=== PATIENT | female | born 1950 | race Caucasian/White ===

== ENCOUNTER → 2016-12-09 | Outpatient (REF) | payer MEDICARE, OTHER ==
[2016-12-09 17:00] LABS: ALBUMIN 3.6 GM/DL (3.2-5.2); ALBUMIN/GLOBULIN RATIO 1.16 (1.00-1.93); ALKALINE PHOSPHATASE 82 U/L (45-117); ALT/SGPT 17 U/L (12-78); ANION GAP 7 MEQ/L (8-16); AST/SGOT 16 U/L (15-37); BILIRUBIN,TOTAL 0.7 MG/DL (0.2-1.0); BLOOD UREA NITROGEN 18 MG/DL (7-18); CALCIUM LEVEL 9.1 MG/DL (8.8-10.2); CARBON DIOXIDE LEVEL 32 MEQ/L (21-32); CHLORIDE LEVEL 104 MEQ/L (98-107); CHOLESTEROL LEVEL 288 MG/DL (<200); CREATININE FOR GFR 0.86 MG/DL (0.55-1.02); GLOMERULAR FILTRATION RATE > 60.0 (>45); GLUCOSE, FASTING 81 MG/DL (80-110); POTASSIUM SERUM 4.4 MEQ/L (3.5-5.1); SODIUM LEVEL 143 MEQ/L (136-145); TOTAL PROTEIN 6.7 GM/DL (6.4-8.2); TRIGLYCERIDES LEVEL 85 MG/DL (<150)
== END ==
LOC: M SFHCSACK 09:18
PROVIDERS: ATTEND Physician Assistant
DX: R03.0 Elevated blood-pressure reading, without diagnosis of hypertension (principal); E78.2 Mixed hyperlipidemia; E55.9 Vitamin D deficiency, unspecified

== ENCOUNTER → 2021-09-11 | Outpatient (CLI) | payer MEDICARE, OTHER ==
--- NOTE | 2021-09-11 13:13 | REP ---
INDICATION: PAIN. COMPARISON: None TECHNIQUE: Four views each elbow FINDINGS: Bilateral: There is no acute fracture, dislocation, subluxation, or joint effusion. IMPRESSION: No acute osseous abnormality seen bilaterally.. <Electronically signed by Ryan Pierre > 09/11/21 [id number]
== END ==
LOC: M WUC 08:27
PROVIDERS: ATTEND Physician Assistant Medical
DX: M25.522 Pain in left elbow (principal)

== ENCOUNTER → 2021-10-02 | Outpatient (CLI) | payer MEDICARE, OTHER ==
[2021-10-02 14:37] LABS: BASO # 0.1 10^3/uL (0.0-0.2); BASO % 0.8 % (0.0-1.0); EOS # 0.1 10^3/uL (0.0-0.5); EOS % 0.5 % (0.0-3.0); HEMATOCRIT 38.2 % (36.0-47.0); HEMOGLOBIN 11.8 g/dl (12.0-15.5); LYMPH # 2.1 10^3/uL (1.5-5.0); LYMPH % 17.1 % (24.0-44.0); MEAN CORPUSCULAR HEMOGLOBIN 25.5 pg (27.0-33.0); MEAN CORPUSCULAR HGB CONC 30.9 g/dl (32.0-36.5); MEAN CORPUSCULAR VOLUME 82.7 fl (80.0-96.0); MONO # 1.6 10^3/uL (0.0-0.8); MONO % 12.6 % (2.0-8.0); NEUTROPHILS # 8.6 10^3/uL (1.5-8.5); NEUTROPHILS % 68.4 % (36.0-66.0); PLATELET COUNT, AUTOMATED 527 10^3/uL (150-450); RED BLOOD COUNT 4.62 10^6/uL (4.00-5.40); WHITE BLOOD COUNT 12.5 10^3/uL (4.0-10.0)
[2021-10-02 15:01] LABS: RHEUMATOID FACTOR QUANT < 10.0 IU/ML (<15.0)
[2021-10-02 15:36] LABS: ERYTHROCYTE SEDIMENTATION RATE 78 mm/hr (0-30)
== END ==
LOC: M PLALAB 09:42
PROVIDERS: ATTEND Physician Assistant
DX: M25.522 Pain in left elbow (principal)

== ENCOUNTER 2021-10-23 14:05 | Inpatient (IN) | payer MEDICARE, OTHER ==
[~2021-10-23] VITALS: Ht 162.6 cm; Wt 52.2 kg
[2021-10-23] MEDS ORDERED: dexameTHASONE 20MG/5ML VIAL (J1100 PER 1MG) IV ONE (14:45)
[2021-10-23 15:05] LABS: BASO # 0.1 10^3/uL (0.0-0.2); BASO % 0.7 % (0.0-1.0); EOS % 0.2 % (0.0-3.0); HEMOGLOBIN 11.6 g/dl (12.0-15.5); LYMPH # 2.2 10^3/uL (1.5-5.0); LYMPH % 18.9 % (24.0-44.0); MEAN CORPUSCULAR HEMOGLOBIN 24.4 pg (27.0-33.0); MEAN CORPUSCULAR HGB CONC 31.4 g/dl (32.0-36.5); MEAN CORPUSCULAR VOLUME 77.9 fl (80.0-96.0); MONO # 1.2 10^3/uL (0.0-0.8); MONO % 10.2 % (2.0-8.0); NEUTROPHILS # 8.2 10^3/uL (1.5-8.5); NEUTROPHILS % 69.3 % (36.0-66.0); PLATELET COUNT, AUTOMATED 448 10^3/uL (150-450); RED BLOOD COUNT 4.75 10^6/uL (4.00-5.40); WHITE BLOOD COUNT 11.8 10^3/uL (4.0-10.0)
--- NOTE | 2021-10-23 15:11 | REP ---
INDICATION: DYSPNEA/COUGH. COMPARISON: 12/23/2012 TECHNIQUE: Portable FINDINGS: The technique utilized in obtaining the radiograph has magnified the cardiac silhouette and accentuated the interstitial markings. Mild cardiomegaly accentuated by technique cannot be ruled out. The lung roe are clear. The pleural angles are sharp. The osseous structures are within normal limits. IMPRESSION: There is no acute cardiopulmonary disease. <Electronically signed by Ryan Pierre > 10/23/21 [id number]
[2021-10-23 15:15] LABS: ALBUMIN 2.1 GM/DL (3.2-5.2); ALT/SGPT 12 U/L (12-78); BILIRUBIN,DIRECT 0.2 MG/DL (0.0-0.2); BILIRUBIN,TOTAL 0.6 MG/DL (0.2-1.0); BLOOD UREA NITROGEN 15 MG/DL (7-18); CARBON DIOXIDE LEVEL 26 MEQ/L (21-32); CHLORIDE LEVEL 101 MEQ/L (98-107); CREATININE FOR GFR 0.83 MG/DL (0.55-1.30); GLOMERULAR FILTRATION RATE > 60.0 (>39); GLUCOSE, FASTING 131 MG/DL (70-100); NT-PRO BNP 343 PG/ML (<125); POTASSIUM SERUM 3.7 MEQ/L (3.5-5.1); SODIUM LEVEL 135 MEQ/L (136-145); TOTAL PROTEIN 7.6 GM/DL (6.4-8.2)
[2021-10-23] MEDS: COMBIVENT RESPIMAT 100-20MCG INHALER 4GM INH SCH ×3 (15:24→15:40)
[2021-10-23] MEDS ORDERED: ISOVUE-370 76% 100ML VIAL As Ordered ONE (17:55)
--- NOTE | 2021-10-23 19:06 | REPVR ---
PROCEDURE INFORMATION: Exam: CTA Chest With Contrast Exam date and time: 10/23/2021 6:08 PM Age: 71 years old Clinical indication: Shortness of breath TECHNIQUE: Imaging protocol: Computed tomographic angiography of the chest with contrast. 3D rendering (Not supervised by radiologist): MIP and/or 3D reconstructed images were created by the technologist. Radiation optimization: All CT scans at this facility use at least one of these dose optimization techniques: automated exposure control; mA and/or kV adjustment per patient size (includes targeted exams where dose is matched to clinical indication); or iterative reconstruction. Contrast material: ISOVUE 370; Contrast volume: 75 ml; Contrast route: INTRAVENOUS (IV); COMPARISON: CR PORTABLE CHEST X-RAY 10/23/2021 2:54 PM FINDINGS: Pulmonary arteries: Filling defect in the right upper lobe segmental and subsegmental pulmonary artery. Filling defect in the right middle lobe and right lower lobe segmental pulmonary arteries. Filling defect in the left lower lobe multiple segmental pulmonary arteries. Aorta: Noncalcified plaque in the descending thoracic aorta. Lungs: Atelectasis of the right middle lobe. Pleural spaces: Unremarkable. No pneumothorax. No pleural effusion. Heart: Unremarkable. No cardiomegaly. No pericardial effusion. Mediastinal space: Mass in the mediastinum measuring 2.9 x 5.2 x 5 cm. Emphysematous changes in bilateral lungs. Lymph nodes: Unremarkable. No enlarged lymph nodes. Bones/joints: Unremarkable. No acute fracture. Soft tissues: Unremarkable. IMPRESSION: Acute pulmonary embolism involving multiple bilateral upper and lower lobe pulmonary arteries and right middle lobe pulmonary arteries. RV to LV ratio measures 0.96. Atelectasis of the right middle lobe. Mass in the mediastinum measuring 2.9 x 5.2 x 5 cm suspicious for neoplastic lesion. Electronically signed by: Seth Hunter On 10/23/2021 19:06:12 PM
--- NOTE | 2021-10-23 20:30 | ECGEPIP ---
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
[2021-10-23] MEDS ORDERED: PROAAER10 INH (20:47)
[2021-10-23] MEDS ORDERED: NAPR500T6 PO (20:47)
[2021-10-23] MEDS ORDERED: HOME MED LIST COMPLETE! XX SCH (20:50)
[2021-10-23] MEDS ORDERED: ALBUTEROL 90 MCG/ACT 8GM HFA INHALER INH PRN (21:25)
[2021-10-23] MEDS ORDERED: NAPROXEN 250 MG TAB PO PRN (21:25)
[2021-10-23] MEDS ORDERED: ACETAMINOPHEN TAB 650MG DOSE (2X325MG) PO PRN (21:25)
--- NOTE | 2021-10-23 21:43 | HPEPDOC ---
[facility] [place] Medical History & Physical Date of Admission Oct 23, 2021 Date of Service: Oct 23, 2021 Attending Physician: MELITA WALDEN MD History and Physical CHIEF COMPLAINT: Shortness of breath HISTORY OF PRESENT ILLNESS: Patient is a 71-year-old female with no significant past medical history who presents with a 6-week history of progressively worsening shortness of breath. She states she began to notice that walking, climbing stairs, or walking on a treadmill were becoming increasingly difficult as she was feeling out of breath sooner than she had previously. 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 She presented to an urgent care 7 days ago complaining of the same symptoms of shortness of breath, dry nonproductive cough, and poor oral intake. She was tested for Covid and was again negative but was prescribed a 4-day course of prednisone, and albuterol inhaler, and doxycycline. With the prednisone she felt back to baseline again however the next day after discontinuing the prednisone the exact same degree of shortness of breath returned. She waited it out through the weekend and as she was preparing to go to the urgent care her daughter, a former nurse, checked her vitals and noticed that her heart rate was elevated so she called 911 and sent her to the emergency department. In the ED her lab work was unremarkable however a CTA of her chest revealed multiple bilateral pulmonary emboli and an anterior mediastinal mass. Dr. Tracy with thoracic surgery was contacted and felt the patient would be appropriate for inpatient biopsy with the pulmonary service tomorrow morning and advised contacting them for same in the a.m. PAST MEDICAL HISTORY: Osteoarthritis PAST SURGICAL HISTORY: Total hysterectomy (1993) Colonoscopy 2014 SOCIAL HISTORY: Current smoker 1 pack/day, [id number] history Occasional alcohol use. Denies marijuana, heroin, cocaine, PCP, or other illicit drug use. Lives at home alone. No history of recent travel or travel abroad No pets FAMILY HISTORY: Father of complications due to TB Mother also history of TB, of lung cancer ALLERGIES: Please see below. REVIEW OF SYSTEMS: Constitutional: Denies fevers, chills, admits to night sweats and 12 pound unintentional weight loss HEENT: Denies headaches, head trauma, no visual changes or eye pain, denies nosebleeds or difficulty swallowing. Cardiovascular: Denies chest pain, palpitations, or orthopnea. Admits to chest tightness. Respiratory: Admits to dry nonproductive cough, admits to shortness of breath at rest and exertionally, denies hemoptysis, wheezing GI: Denies vomiting, abdominal pain, diarrhea, or constipation. Admits to intermittent nausea for the past week. : Denies pain with urination or frequency Musculoskeletal: Denies joint pain, swelling in her lower extremities or upper extremities. Neuro/psych: Denies muscle weakness or sensory loss Skin: Denies skin rashes HOME MEDICATIONS: Please see below. PHYSICAL EXAMINATION: VITAL SIGNS: Temperature of 97.6 Fahrenheit, pulse 96 and regular, breathing in a respiratory rate of 18 without use of accessory muscles of respiration saturating 94% on room air with a blood pressure of 128/87 GENERAL APPEARANCE: Well-appearing female who appears stated age sitting upright comfortably in bed in no acute distress speaking in complete sentences. HEENT: NC, AT, EOMI, no scleral icterus, moist mucous membranes, no pharyngeal erythema. CARDIOVASCULAR: RRR, normal S1-S2. No murmurs, gallops, rubs. LUNGS: CTAB with full breath sounds, no wheezes, crackles, or rhonchi. No dullness to percussion bilaterally. ABDOMEN: Soft, nontender, nondistended, bowel sounds present. No hepatosplenomegaly. No masses or ecchymosis. No CVA tenderness. EXTREMITIES: No swelling or edema NEUROLOGICAL: No focal or sensory deficits. CN II-XII grossly intact. PSYCHIATRIC: Normal mood and affect LABORATORY DATA: See below. IMAGIN10/23/2021 chest x-ray: "IMPRESSION: There is no acute cardiopulmonary disease." 10/23/2021 CT angiogram chest: "IMPRESSION: Acute pulmonary embolism involving multiple bilateral upper and lower lobe pulmonary arteries and right middle lobe pulmonary arteries. RV to LV ratio measures 0.96. Atelectasis of the right middle lobe. Mass in the mediastinum measuring 2.9 x 5.2 x 5 cm suspicious for neoplastic lesion." MICROBIOLOGY: Please see below. Assessment/Plan: Patient is a 71-year-old female who presents with a 6-week history of progressively worsening shortness of breath, 12 pound weight loss, night sweats and found to have multiple bilateral pulmonary emboli and an anterior mediastinal mass. #. Bilateral pulmonary emboli Patient is hemodynamically stable, RV:LV ratio<1, no indication for thrombolysis. Given that she may be appropriate for biopsy in a.m., will start patient on heparin drip overnight. Given high likelihood of cancer, patient should likely be discharged on therapeutic Lovenox #. Anterior mediastinal mass ED provider spoke with Dr. Tracy who feels pulmonology will likely be able to get to it for biopsy and for that reason feels patient should be admitted Consult pulmonary in a.m. for consideration of biopsy #. Microcytic anemia Iron studies ordered for the morning #. Osteoarthritis Continue home Tylenol DVT prophylaxis: Heparin drip Disposition: Inpatient Vital Signs Vital Signs Date Time Temp Pulse Resp B/P (MAP) Pulse Ox O2 Delivery O2 Flow Rate FiO2 10/23/21 20:45 97 18 128/87 (101) 94 Room Air 10/23/21 14:22 97.6 Laboratory Data Labs 24H Laboratory Tests 2 10/23/21 14:26: Immature Granulocyte % (Auto) 0.7, Neutrophils (%) (Auto) 69.3H, Lymphocytes (%) (Auto) 18.9L, Monocytes (%) (Auto) 10.2H, Eosinophils (%) (Auto) 0.2, Basophils (%) (Auto) 0.7, Neutrophils # (Auto) 8.2, Lymphocytes # (Auto) 2.2, Monocytes # (Auto) 1.2H, Eosinophils # (Auto) 0.0, Basophils # (Auto) 0.1, Nucleated Red Blood Cells % (auto) 0.0, Anion Gap 8, Glomerular Filtration Rate > 60.0, Calcium Level 9.0, Total Bilirubin 0.6, Direct Bilirubin 0.2, Aspartate Amino Transf (AST/SGOT) 14, Alanine Aminotransferase (ALT/SGPT) 12, Alkaline Phosphatase 125H, HO-Ujg-G-Type Natriuretic Peptide 343H, Total Protein 7.6, Albumin 2.1L, Albumin/Globulin Ratio 0.4L, Thyroid Stimulating Hormone (TSH) 1.720 10/23/21 14:28: Lactic Acid Level 1.7 10/23/21 15:00: POC Troponin I (Misc) 0.00 CBC/BMP Laboratory Tests 10/23/21 14:26 Microbiology Microbiology 10/23/21 Respiratory Virus Panel (PCR) ([facility]) - Final, Complete 10/23/21 Blood Culture, Received Pending 10/23/21 Blood Culture, Received Pending Home Medications Scheduled Apixaban (Eliquis) 5 Mg Tab.ds.pk, 5 MG PO ASDIRECTED Take as directed by instructions within starter pack. 10 mg BID x 7 days, then 5mg BID there after Scheduled PRN Albuterol Sulfate (Proair Hfa) 8.5 Gm Hfa.aer.ad, 2 PUFF INH Q4H PRN for SHORTNESS OF BREATH Naproxen (Naproxen) 500 Mg Tablet.dr, 500 MG PO BID PRN for MODERATE PAIN (PS 5- 7) Allergies Coded Allergies: No Known Allergies (Unverified , 10/23/21) GME ATTESTATION GME ATTESTATION My faculty preceptor for this patient encounter was physically present during the encounter and was fully available. All aspects of the patient interview, examination, medical decision making process, and medical care plan development were reviewed and approved by the faculty preceptor. The faculty preceptor is aware and concurs with the plan as stated in the body of this note and will attest to such by his/her cosignature. ATTENDING NOTE ICyn, have independently examined this patient and performed my own physical exam, as well as reviewed the documentation and addend when necessary. I have discussed in detail with the resident / student the findings and plan of treatment as documented by the resident / student. I agree with their findings and treatment plan except for any changes as outlined below. AURELIA BOUDREAUX DO Oct 23, 2021 21:43 MELITA WALDEN MD Oct 28, 2021 04:48
[2021-10-23] MEDS ORDERED: HEPARIN SOD (PORCINE) 5000UNITS/ML 1ML VIAL/SYRINGE IV ONE (22:20)
[2021-10-23] MEDS ORDERED: HEPARIN SOD (PORCINE) 5000UNITS/ML 1ML VIAL/SYRINGE IV PRN (22:20)
[2021-10-23] MEDS: HEPARIN DRIP 25,000 UNITS in IV 1 EA IV SCH (22:57)
[2021-10-24 03:35] VITALS: BP 121/84
[2021-10-24 05:10] LABS: HEMATOCRIT 33.9 % (36.0-47.0); HEMOGLOBIN 10.5 g/dl (12.0-15.5); MEAN CORPUSCULAR HEMOGLOBIN 24.2 pg (27.0-33.0); MEAN CORPUSCULAR VOLUME 78.1 fl (80.0-96.0); PLATELET COUNT, AUTOMATED 387 10^3/uL (150-450); RED BLOOD COUNT 4.34 10^6/uL (4.00-5.40); WHITE BLOOD COUNT 6.1 10^3/uL (4.0-10.0)
[2021-10-24 05:33] LABS: BLOOD UREA NITROGEN 15 MG/DL (7-18); CALCIUM LEVEL 8.3 MG/DL (8.8-10.2); CARBON DIOXIDE LEVEL 23 MEQ/L (21-32); CHLORIDE LEVEL 105 MEQ/L (98-107); CREATININE FOR GFR 0.56 MG/DL (0.55-1.30); FERRITIN 625 NG/ML (8-252); GLOMERULAR FILTRATION RATE > 60.0 (>39); GLUCOSE, FASTING 149 MG/DL (70-100); IRON (FE) 26 UG/DL (50-170); PERCENT SATURATION 13.1 % (13.2-45.0); POTASSIUM SERUM 4.3 MEQ/L (3.5-5.1); SODIUM LEVEL 138 MEQ/L (136-145); TOTAL IRON BINDING CAPACITY 198 UG/DL (250-450)
[2021-10-24 08:08] VITALS: BP 126/82
[2021-10-24 12:00] VITALS: BP 114/77
--- NOTE | 2021-10-24 14:59 | IPNPDOC ---
Text Note Date of Service The patient was seen on 10/24/21. NOTE Subjective: Patient is a 71-year-old female with a PMHx of OA who presented to the ER on 10/23 with complaints of SOB x 6 weeks. While in the emergency room, patient had a CTA completed of her chest that revealed multiple bilateral pulmonary emboli and an anterior mediastinal mass.. Cardiothoracic surgery was initially contacted emergency room and had recommended evaluation by pulmonary services for possible EBUS. Patient was seen and examined at the bedside. Patient is laying flat in bed, appears to be comfortable without any acute distress. She denies any nausea, vomiting, chest pain, shortness of breath or palpitations. Has not experience an y significant pain, diarrhea, or urinary discomfort Objective: Vitals (See below) General: Lying in bed, no acute distress, comfortable, She is awake, alert, oriented to person this time. HEENT: NC, AT CVS: RRR, +S1S2 Lungs: Fair air entry b/l, -w/r/r Abdomen: Soft, ND, NT Extremities: - Edema, - Calf tenderness Imaging: CXR 10/23: There is no acute cardiopulmonary disease. CTA chest 10/23: Acute pulmonary embolism involving multiple bilateral upper and lower lobe pulmonary arteries and right middle lobe pulmonary arteries. RV to LV ratio measures 0.96. Atelectasis of the right middle lobe. Mass in the mediastinum measuring 2.9 x 5.2 x 5 cm suspicious for neoplastic lesion. Assessment and plan: Bilateral pulmonary emboli - Currently patient does not appear to be in any acute distress; denies any significant chest breath while laying in bed - She is saturating well on room air - Patient remains hemodynamically stable - Imaging noted above - c/w Heparin drip Anterior mediastinal mass - Imaging studies were discussed with and reviewed by our thoracic surgery; cu rrently pulmonary evaluation - Discussed with pulmonology this morning; will evaluate patient and determine if this should proceed currently or as an outpatient - I discussed imaging findings with the patient is advised her that this is strongly a malignancy until proven otherwise; she has verbalized understanding - Patient understands that a biopsy is required to help determine what this mass is and how we can go about treating Microcytic anemia - Will start Ferrous sulfate Osteoarthritis - c/w Tylenol DVT prophylaxis - c/w Heparin drip Disposition: - Pending clinical improvement Madhuri ALAMO I+O VS, Fishbone, I+O Laboratory Tests 10/24/21 04:52 Vital Signs Date Time Temp Pulse Resp B/P (MAP) Pulse Ox O2 Delivery O2 Flow Rate FiO2 10/24/21 12:00 96.7 76 18 114/77 (89) 97 Room Air I&O- Last 24 Hours up to 6 AM 10/24/21 06:00 Intake Total 52 ml Balance 52 ml BLAIR MILLARD MD Oct 24, 2021 14:59
[2021-10-24 16:27] VITALS: BP 108/77
[2021-10-24] MEDS: FERROUS SULFATE 325MG TAB PO SCH (19:59)
[2021-10-24 20:00] VITALS: BP 106/63
--- NOTE | 2021-10-24 20:57 | REPVR ---
PROCEDURE INFORMATION: Exam: US Duplex Lower Extremity Veins, Bilateral Exam date and time: 10/24/2021 8:27 PM Age: 71 years old Clinical indication: Condition or disease; Other: Pulmonary embolism; Additional info: R/O dvt TECHNIQUE: Imaging protocol: Real-time duplex ultrasound of the extremities with 2-D lipscomb scale, color Doppler flow and spectral waveform analysis with image documentation. Complete exam focused on the bilateral lower extremity veins. COMPARISON: No relevant prior studies available. FINDINGS: Right deep veins: Hypoechoic, occlusive thrombus in the popliteal and posterior tibial veins. Suboptimal visualization of the peroneal vein. The common femoral and femoral veins are patent without thrombus. Right superficial veins: Saphenofemoral junction is patent without thrombus. Left deep veins: Suboptimal visualization of the posterior tibial and peroneal. The common femoral, femoral and popliteal veins are patent without thrombus. Normal Doppler waveforms. Normal compressibility and/or augmentation response. Left superficial veins: Saphenofemoral junction is patent without thrombus. Soft tissues: Unremarkable. IMPRESSION: Hypoechoic, occlusive thrombus in the right popliteal and posterior tibial veins. Please note the patient has known pulmonary emboli. Electronically signed by: Roosevelt Niño On 10/24/2021 20:55:56 PM
[2021-10-25] VITALS (8 sets, daily range): BP systolic 91–113; BP diastolic 53–77
[2021-10-25] MEDS: HEPARIN DRIP 25,000 UNITS in IV 1 EA IV SCH (03:16)
[2021-10-25 07:37] LABS: BASO % 0.3 % (0.0-1.0); EOS # 0.1 10^3/uL (0.0-0.5); EOS % 0.6 % (0.0-3.0); HEMOGLOBIN 9.2 g/dl (12.0-15.5); LYMPH # 3.8 10^3/uL (1.5-5.0); LYMPH % 25.8 % (24.0-44.0); MEAN CORPUSCULAR HEMOGLOBIN 24.5 pg (27.0-33.0); MEAN CORPUSCULAR HGB CONC 30.7 g/dl (32.0-36.5); MEAN CORPUSCULAR VOLUME 79.8 fl (80.0-96.0); MONO # 1.5 10^3/uL (0.0-0.8); NEUTROPHILS # 9.2 10^3/uL (1.5-8.5); NEUTROPHILS % 62.8 % (36.0-66.0); PLATELET COUNT, AUTOMATED 379 10^3/uL (150-450); RED BLOOD COUNT 3.76 10^6/uL (4.00-5.40); WHITE BLOOD COUNT 14.6 10^3/uL (4.0-10.0)
[2021-10-25 07:57] LABS: BLOOD UREA NITROGEN 18 MG/DL (7-18); CALCIUM LEVEL 8.3 MG/DL (8.8-10.2); CARBON DIOXIDE LEVEL 28 MEQ/L (21-32); CHLORIDE LEVEL 105 MEQ/L (98-107); CREATININE FOR GFR 0.62 MG/DL (0.55-1.30); GLOMERULAR FILTRATION RATE > 60.0 (>39); GLUCOSE, FASTING 81 MG/DL (70-100); MAGNESIUM LEVEL 2.6 MG/DL (1.8-2.4); POTASSIUM SERUM 3.7 MEQ/L (3.5-5.1); SODIUM LEVEL 139 MEQ/L (136-145)
[2021-10-25] MEDS: FERROUS SULFATE 325MG TAB PO SCH (08:01)
[2021-10-25] MEDS ORDERED: APIXABAN 5 MG TAB (ELIQUIS) PO SCH (09:00)
[2021-10-25] MEDS ORDERED: diphenhydrAMINE 50MG/ML VIAL (J1200) As Ordered ONE (10:58)
[2021-10-25] MEDS ORDERED: fentaNYL 100 MCG/2 ML INJECTION (J3010) As Ordered ONE (10:58)
[2021-10-25] MEDS ORDERED: LIDOCAINE 1% MDV 20ML VIAL As Ordered ONE (10:59)
[2021-10-25] MEDS ORDERED: ISOVUE-300 61% 50ML VIAL As Ordered ONE ×2 (10:59→11:01)
[2021-10-25] MEDS ORDERED: MIDAZOLAM INJ 2MG/2ML VIAL (J2250 PER 1MG) As Ordered ONE (10:59)
[2021-10-25] MEDS ORDERED: ELIQ5TAB4 PO ×2 (11:01→12:46)
--- NOTE | 2021-10-25 14:40 | IRMSE ---
[facility] IR Moderate Sedation Eval. Date and Time Date: Oct 25, 2021 Time: 11:00 ASA Classification ASA Classification: III-Severe systemic dis. Mallampati Score: II NPO: Yes Obstructive Sleep Apnea: No Interval Plan: moderate sedation BRENT SEQUEIRA MD Oct 25, 2021 14:40
--- NOTE | 2021-10-25 14:42 | IRPON ---
IR Postoperative Note Date Of Procedure: Oct 25, 2021 Time Of Procedure: 14:40 IR Postoperative Note IR IVC Filter Placement IR Inferior vena cavogram IR Ultrasound of the right groin. IR Moderate sedation. Clinical Information:Pulmonary embolus. DVT. Plans for bronchoscopy work-up and intervention which will require interruptions in anticoagulation. Patient is therefore referred for IVC filter placement. Physician: Dr. Saldivar. Procedure: The patient was advised of the benefits, risks, and alternatives of the procedure and informed consent was obtained. A time out was performed with verification of the patient's name, MRN, site of procedure, and type of procedure to be performed. The patient was positioned in the supine position on the angiographic table. The site was prepped and draped in the usual sterile fashion. Moderate sedation was performed by the physician including the presence of an in dependent trained RN, who assisted in monitoring the patient's level of consciousness and physiological status. Following the administration of fentanyl and Versed, the physician spent 45 minutes of continuous [id number] time with the patient. Preliminary ultrasound of the right groin was performed, demonstrating patent and compressible right common femoral vein. . The right common femoral vein was accessed under ultrasound guidance, using a micropuncture kit. A 0.035 Amplatz wire was advanced under fluoroscopy guidance and placed into the central inferior vena cava. The filter sheath was advanced over the wire, under fluoroscopy guidance, and positioned in the right common iliac vein. An inferior venacavogram was then performed, demonstrating a normal caliber inferior vena cava without filling defects and the renal vein inflows at the L1/L2 level. No caval anomalies were identified. The filter sheath was advanced over the wire and under fluoroscopy guidance, beyond the target site of deployment. A retrievable Cook select inferior vena cava filter was then advanced through the sheath and positioned within the infra-renal inferior vena cava. The filter was then deployed in the usual fashion. Positioning was confirmed fluoroscopically. The sheath was then removed and hemostasis obtained with manual compression. The patient tolerated the procedure well and was returned to the PRU in stable condition. EBL: < 5 mL. Complications:None. Conclusions: 1. Normal cavogram. 2. Successful deployment of a retrievable Cook select inferior vena cava filter in the infra-renal inferior vena cava. 3. While the filter can remain lifelong, the standard guidelines is to remove it when it is no longer required. Patient to follow-up in IR clinic in 6 months to discuss filter retrieval. Thank you for this referral BRENT SALDIVAR MD Oct 25, 2021 14:42
--- NOTE | 2021-10-25 15:13 | IPN ---
PULMONARY PROGRESS NOTE DATE: 10/25/2021 SUBJECTIVE: The patient was seen and examined this morning during bedside rounds. The patient reports her shortness of breath has continued to improve. She was able to get up and walk around the room without feeling short of breath. Denied any lightheadedness or dizziness. No palpitations. She has some occasional cough and mucous production. She denies any wheezing currently. She has not had any chest pain. She denies any abdominal pain, no nausea, vomiting or diarrhea. OBJECTIVE: VITAL SIGNS: Temperature is 97.2, pulse is 70, respirations are 19, blood pressure is 92/54, O2 sat 96% on room air. INTAKE AND OUTPUT: Ins 1.2 liters, out 500 ml. GENERAL: Patient is a thin female, is sitting in the bed, awake, alert and oriented. She is not in any acute distress at this time. She is not using accessory muscles with respiration. HEENT: Normocephalic, atraumatic. Moist mucous membranes are noted. NECK: Supple. Trachea is midline. No palpable cervical adenopathy. CARDIAC: Regular rate and rhythm. Normal S1 and S2. Unable to clearly auscultate any murmurs. PULMONARY: There is diminished breath sounds bilaterally with coarse rhonchi on the right. No wheezing noted currently. ABDOMEN: Soft, nontender and nondistended. No organomegaly. EXTREMITIES: There is no lower extremity edema bilaterally and no calf tenderness noted bilaterally. LABORATORY DATA: WBC is 14.6, hemoglobin is 9.2, platelets are 379,000. Chemistries: Sodium 139, potassium 3.7, chloride 105, bicarbonate 28, BUN 18, creatinine 0.62, glucose is 81, magnesium is 2.6. PTT is 56.6. IMAGING: Lower extremity Duplex showed a DVT in the right popliteal and posterior tibial veins. Echocardiogram is pending still. ASSESSMENT AND PLAN: Ms. Mast is a 71-year-old female with a past medical history of emphysema and ongoing nicotine dependence who presented with worsening shortness of breath and dyspnea on exertion which had been ongoing for several weeks. Patient had imaging done on admission which showed evidence of subacute to acute PE. There was some suspicion of right heart strain noted on her initial CT as well. She has otherwise has been hemodynamically stable although did have mildly elevated BNP, her troponins were negative. Patient has not required any oxygen supplementation. Her CT had also shown findings of mediastinal mass/adenopathy. 1. Abnormal CT with a mediastinal mass/adenopathy, suspicious for malignancy, possibly lymphoma versus a small cell carcinoma. Patient is aware that she will need bronchoscopy with EBUS and FNA of her lymph nodes. We did discuss yesterday the risks and benefits about performing a procedure in the acute setting with her PE and risks with general anesthesia in particular from a cardiac standpoint. The patient is aware that we will plan at this point for an outpatient bronchoscopy to allow her to have some additional anticoagulation and stabilization of her clots. Will follow-up with the patient as an outpatient and consent and schedule her bronchoscopy as an outpatient. 2. Bilateral pulmonary embolism likely in the setting of malignancy. Patient is hemodynamically stable and not hypoxic. She did have some suggestion of right heart strain on CT and echocardiogram was ordered. Her BNP was mildly elevated but she did not have any positive troponins. Her RV appears dilated. I suspect there is a chronic component of pulmonary hypertension with perhaps a more acute component related to her PE. Will follow-up with the results of her echocardiogram and may need to consider repeating an echo prior to her bronchoscopy. The patient is currently on a Heparin drip for anticoagulation. Will change her to DOAC upon discharge as with the newer studies for malignancy related VTE DOACs are non-inferior to Lovenox which has traditionally been the gold standard. Patient's lower extremity Duplex which was ordered yesterday did show evidence of DVT. She will need her anticoagulation held briefly for her procedure. Would consult IR to place an IVC filter. 3. Emphysema and suspected COPD. Will continue with bronchodilators. The patient states she is still actively smoking although has been trying to cut back. Will continue to encourage patient towards attempts at complete smoking cessation. 4. DVT prophylaxis: On AC. 5. Code Status: Full code. Please do not hesitate to call for any further questions or concerns. Patient can follow-up as an outpatient after discharge in one week.
--- NOTE | 2021-10-25 15:48 | DS.PDOC ---
Discharge Summary General Date of Admission Oct 23, 2021 at 21:21 Date of Discharge 10/25/2021 Discharge Summary PROCEDURES PERFORMED DURING STAY: [None]. ADMITTING DIAGNOSES / DISCHARGE DIAGNOSES: Bilateral pulmonary emboli Anterior mediastinal mass Microcytic anemia Osteoarthritis DVT prophylaxis COMPLICATIONS/CHIEF COMPLAINT: Shortness of breath HISTORY OF PRESENT ILLNESS: Patient is a 71-year-old female with a PMHx of OA who presented to the ER on 10/23 with complaints of SOB x 6 weeks. While in the emergency room, patient had a CTA completed of her chest that revealed multiple bilateral pulmonary emboli and an anterior mediastinal mass.. Cardiothoracic surgery was initially contacted emergency room and had recommended evaluation by pulmonary services for possible EBUS. Patient was seen and examined at the bedside. Patient reports that he feels relatively plan this morning. They deny any nausea, vomiting, chest pain, shortness breath, diarrhea, or urinary discomfort. HOSPITAL COURSE: Bilateral pulmonary emboli - Not in any acute distress, denies any chest pain, shortness of breath or palpitations. Currently - Continues to saturate well on room air - Hemodynamically stable - Imaging noted above - s/p IVC filter placement with Dr. Saldivar on 10/25/2021 - Pulmonology on consultation; appreciate their input - Will start Eliquis; Will DC Heparin drip Anterior mediastinal mass - Imaging studies were discussed with and reviewed by our thoracic surgery; recommended pulmonary evaluation - I discussed imaging findings with the patient is advised her that this is strongly a malignancy until proven otherwise; she has verbalized understanding - Patient understands that a biopsy is required to help determine what this mass is and how we can go about treating - Pulmonology on consultation; appreciate their input - Biopsy inpatient was deferred given her acute pulmonary emboli and acute DVT - Patient is scheduled to follow-up with pulmonology as an outpatient for br onchoscopy and biopsy Microcytic anemia - c/w Ferrous sulfate Osteoarthritis - c/w Tylenol DVT prophylaxis - c/w Eliquis; Will DC Heparin drip DISCHARGE MEDICATIONS: Please see below. ALLERGIES: Please see below. PHYSICAL EXAMINATION ON DISCHARGE: Vitals (See below) General: Lying in bed, no acute distress, comfortable, awake, alert, oriented to person this time. HEENT: NC, AT CVS: +S1S2 Lungs: Fair air entry b/l, no evidence of wheezing, rales or rhonchi Abdomen: Soft, nondistended and nontender Extremities: No evidence of lower extremity edema LABORATORY DATA: Please see below. IMAGING: CXR 10/23: There is no acute cardiopulmonary disease. CTA chest 10/23: Acute pulmonary embolism involving multiple bilateral upper and lower lobe pulmonary arteries and right middle lobe pulmonary arteries. RV to LV ratio measures 0.96. Atelectasis of the right middle lobe. Mass in the mediastinum measuring 2.9 x 5.2 x 5 cm suspicious for neoplastic lesion. ACTIVITY: [As tolerated]. DISCHARGE PLAN: Follow-up with primary care per provider, IR and Pulmonology within the next 7 days Remain compliant with treatment plan and medications Return to the ER if you experience any problems DISPOSITION: Home, Self-Care. DISCHARGE CONDITION: [Stable]. TIME SPENT ON DISCHARGE: 35 minutes Vital Signs/I&Os Vital Signs Date Time Temp Pulse Resp B/P (MAP) Pulse Ox O2 Delivery O2 Flow Rate FiO2 10/25/21 13:55 97.5 76 18 113/76 (88) 96 Room Air 10/25/21 11:44 2.0 I&O- Last 24 Hours up to 6 AM 10/25/21 06:00 Intake Total 1290 ml Output Total 800 ml Balance 490 ml Laboratory Data Labs 24H Laboratory Tests 2 10/24/21 18:09: Activated Partial Thromboplast Time 59.9H 10/25/21 00:58: Activated Partial Thromboplast Time 78.0H 10/25/21 07:10: Activated Partial Thromboplast Time 56.6H, Immature Granulocyte % (Auto) 0.5, Neutrophils (%) (Auto) 62.8, Lymphocytes (%) (Auto) 25.8, Monocytes (%) (Auto) 10.0H, Eosinophils (%) (Auto) 0.6, Basophils (%) (Auto) 0.3, Neutrophils # (Auto) 9.2H, Lymphocytes # (Auto) 3.8, Monocytes # (Auto) 1.5H, Eosinophils # (Auto) 0.1, Basophils # (Auto) 0.0, Nucleated Red Blood Cells % (auto) 0.0, Anion Gap 6L, Glomerular Filtration Rate > 60.0, Calcium Level 8.3L, Magnesium Level 2.6H CBC/BMP Laboratory Tests 10/25/21 07:10 Microbiology Microbiology 10/24/21 Stool Occult Blood ([facility]) - Final, Complete 10/23/21 Respiratory Virus Panel (PCR) ([facility]) - Final, Complete 10/23/21 Blood Culture - Preliminary, Resulted No Growth after 48 hours. All Specime... 10/23/21 Blood Culture - Preliminary, Resulted No Growth after 48 hours. All Specime... Discharge Medications Scheduled Apixaban (Eliquis) 5 Mg Tab.ds.pk, 5 MG PO ASDIRECTED Take as directed by instructions within starter pack. 10 mg BID x 7 days, then 5mg BID there after Scheduled PRN Albuterol Sulfate (Proair Hfa) 8.5 Gm Hfa.aer.ad, 2 PUFF INH Q4H PRN for SHORTNESS OF BREATH, (Reported) Naproxen (Naproxen) 500 Mg Tablet.dr, 500 MG PO BID PRN for MODERATE PAIN (PS 5- 7), (Reported) Allergies Coded Allergies: No Known Allergies (Unverified , 10/23/21) BLAIR MILLARD MD Oct 25, 2021 15:48
--- NOTE | 2021-10-26 17:53 | ECHO ---
ECHOCARDIOGRAM DATE OF PROCEDURE: 10/24/2021 Age: 71 Gender: Height: 163 cm Weight: 51 kg. PATIENT LOCATION: Room 3226. REFERRING PHYSICIAN: Dr. Pedro Millard INDICATION: Shortness of breath, pulmonary embolism. 2D MEASUREMENTS: IVS 0.83 cm LV 3.5 cm LVPW 0.98 cm LA 2.9 cm Aorta 3.9 cm IVC 1.7 cm DOPPLER MEASUREMENTS: Peak velocity across the aortic valve 0.8 m/s Peak velocity across the LVOT 0.75 m/s Mitral E 0.65 Maximum tricuspid valve velocity 2.7 m/s 2D COMMENTS: 1. Normal left ventricular size, wall thickness, and a normal global left ventricular systolic function, hyperdynamic, with an LVEF estimated at 65%-70%. 2. Normal left atrium. The right atrium is enlarged. The right ventricle also appeared to be mildly enlarged but with normal free wall motion. 3. There was increased mobility noted at the ___ of the atrial septum without evidence of shunt. 4. No pericardial effusion seen. 5. Minimally calcified aortic valve with normal leaflet excursion. In limited view, the posterior valve leaflet appeared to be mildly collapsing. Normal tricuspid valve. The pulmonic valve and proximal pulmonary artery branches were not well visualized. 6. The inferior vena cava was normal in size, central venous pressure, and most likely normal. DOPPLER: It detected trace aortic regurgitation, trace mitral regurgitation, and moderate tricuspid regurgitation. The calculated pulmonary artery systolic pressure varies between 30%-40 mmHg. Abnormal relaxation pattern was noted across the mitral valve annulus, consistent with features of grade 2 left ventricular diastolic dysfunction. IMPRESSION: 1. Normal global left ventricular systolic function with a hyperdynamic left ventricle. 2. In limited views, there were features consistent with grade 2 left ventricular diastolic dysfunction. 3. Aortic valve sclerosis with trace aortic regurgitation but no aortic stenosis. 4. Trace mitral regurgitation with probably collapse of the posterior mitral valve leaflet. 5. Moderate tricuspid regurgitation with mild pulmonary hypertension and a dilated right atrium. The right ventricle also appeared to be mildly enlarged, but right ventricular systolic function seems to be normal. 6. 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 7. Mildly dilated aortic root at 3.9 cm. This was discussed with the ordering provider on 10/25/2021.
== END 2021-10-25 15:15 | disposition home or self-care (01) | DRG 176 ==
LOC: M ED 14:05 → EDBD 14:05 → M ED INP 21:21 → ENRESERV 10-24 03:17 → M PCU 10-24 03:34
PROVIDERS: ADMIT Family Medicine; ATTEND Family Medicine
PROC: 06H03DZ Insertion of Intraluminal Device into Inferior Vena Cava, Percutaneous Approach (ICD-10-PCS; principal; 2021-10-25 11:00)
DX: I26.99 Other pulmonary embolism without acute cor pulmonale (principal); F17.210 Nicotine dependence, cigarettes, uncomplicated; R91.8 Other nonspecific abnormal finding of lung field; D50.9 Iron deficiency anemia, unspecified; M19.90 Unspecified osteoarthritis, unspecified site; Z90.79 Acquired absence of other genital organ(s); Z20.822 Contact with and (suspected) exposure to COVID-19

== ENCOUNTER → 2021-11-19 | Outpatient (CLI) | payer MEDICARE, OTHER ==
[~2021-11-19] MED LIST: ACET1TAB55 PO; ATOR40TA75 PO; COMBAER6 INH; ELIQ5TAB PO; ELIQ5TAB4 PO; KEPP250T5 PO; LOVE0.6I2 SC; METO1TAB87 PO; NAPR500T6 PO; POTA-136 PO; PROAAER10 INH; PROP10TA56 PO
== END ==
LOC: M PLARAD 08:16
PROVIDERS: ATTEND Internal Medicine Pulmonary Disease
DX: R91.8 Other nonspecific abnormal finding of lung field (principal)

== ENCOUNTER 2021-11-20 10:17 | Inpatient (IN) | payer MEDICARE, OTHER ==
[~2021-11-20] VITALS: Ht 162.6 cm; Wt 51.0 kg
[~2021-11-20 10:17] MED LIST changes: -ACET1TAB55 PO; -ATOR40TA75 PO; -COMBAER6 INH; -ELIQ5TAB PO; -KEPP250T5 PO; -LOVE0.6I2 SC; -METO1TAB87 PO; -POTA-136 PO; -PROP10TA56 PO
[2021-11-20 10:46] LABS: BASO # 0.1 10^3/uL (0.0-0.2); BASO % 0.5 % (0.0-1.0); EOS % 0.2 % (0.0-3.0); HEMATOCRIT 34.7 % (36.0-47.0); HEMOGLOBIN 10.4 g/dl (12.0-15.5); LYMPH # 1.4 10^3/uL (1.5-5.0); LYMPH % 9.9 % (24.0-44.0); MEAN CORPUSCULAR HEMOGLOBIN 22.9 pg (27.0-33.0); MEAN CORPUSCULAR VOLUME 76.4 fl (80.0-96.0); MONO # 1.2 10^3/uL (0.0-0.8); MONO % 8.6 % (2.0-8.0); NEUTROPHILS # 11.4 10^3/uL (1.5-8.5); NEUTROPHILS % 80.1 % (36.0-66.0); PLATELET COUNT, AUTOMATED 515 10^3/uL (150-450); RED BLOOD COUNT 4.54 10^6/uL (4.00-5.40); WHITE BLOOD COUNT 14.2 10^3/uL (4.0-10.0)
[2021-11-20 10:59] LABS: INR 1.69; PROTHROMBIN TIME 20.3 SECONDS (12.7-14.5)
[2021-11-20 11:00] LABS: PARTIAL THROMBOPLASTIN TIME 36.4 SECONDS (25.9-37.0)
[2021-11-20 11:08] LABS: BLOOD UREA NITROGEN 11 MG/DL (7-18); CALCIUM LEVEL 8.6 MG/DL (8.8-10.2); CARBON DIOXIDE LEVEL 27 MEQ/L (21-32); CHLORIDE LEVEL 102 MEQ/L (98-107); GLOMERULAR FILTRATION RATE > 60.0 (>39); GLUCOSE, FASTING 131 MG/DL (70-100); POTASSIUM SERUM 3.7 MEQ/L (3.5-5.1); SODIUM LEVEL 137 MEQ/L (136-145)
[2021-11-20 11:12] LABS: CK-MB VALUE MASS < 1.0 NG/ML (<3.6); CPK CREATINE PHOSPHOKINASE 40 U/L (26-192)
[2021-11-20 12:34] LABS: RSV AMPLIFICATION NEGATIVE (NEGATIVE)
[2021-11-20 13:29] LABS: CHOLESTEROL LEVEL 150 MG/DL (<200); CHOLESTEROL RISK RATIO 4.545 (<5); HDL CHOLESTEROL 33 MG/DL (>40); LDL CHOLESTEROL 99 MG/DL (<100); NON-HDL-C 117 MG/DL; TRIGLYCERIDES LEVEL 88 MG/DL (<150)
[2021-11-20] MEDS ORDERED: NS 500 ML IV ONE (13:55)
[2021-11-20] MEDS ORDERED: ELIQ5TAB PO (15:34)
[2021-11-20] MEDS ORDERED: HOME MED LIST COMPLETE! XX SCH (15:35)
[2021-11-20 16:27] VITALS: BP 115/79
[2021-11-20] MEDS: ATORVASTATIN 20 MG TAB PO SCH (17:00)
[2021-11-20] MEDS: NS 1,000 ML IV SCH (17:00)
[2021-11-20] MEDS ORDERED: PROHANCE 279.3MG/ML 5ML VIAL As Ordered ONE (20:32)
[2021-11-20] MEDS: APIXABAN 5 MG TAB (ELIQUIS) PO SCH (21:18)
[2021-11-20 22:00] VITALS: BP 115/75
[2021-11-21] MEDS: NS 1,000 ML IV SCH ×2 (02:30→20:04)
[2021-11-21] MEDS: LIDOCAINE 5% (LIDODERM) PATCH TD SCH ×2 (03:16→20:04)
[2021-11-21 06:00] VITALS: BP 114/74
[2021-11-21 06:02] LABS: HEMATOCRIT 26.9 % (36.0-47.0); MEAN CORPUSCULAR HEMOGLOBIN 22.8 pg (27.0-33.0); MEAN CORPUSCULAR HGB CONC 30.1 g/dl (32.0-36.5); MEAN CORPUSCULAR VOLUME 75.8 fl (80.0-96.0); RED BLOOD COUNT 3.55 10^6/uL (4.00-5.40); WHITE BLOOD COUNT 12.5 10^3/uL (4.0-10.0)
[2021-11-21 06:10] LABS: HEMOGLOBIN 8.1 g/dl (12.0-15.5)
[2021-11-21 06:11] LABS: PLATELET COUNT, AUTOMATED 406 10^3/uL (150-450)
[2021-11-21 06:26] LABS: ALBUMIN 1.5 GM/DL (3.2-5.2); ALT/SGPT 14 U/L (12-78); BILIRUBIN,TOTAL 0.2 MG/DL (0.2-1.0); BLOOD UREA NITROGEN 9 MG/DL (7-18); CALCIUM LEVEL 7.8 MG/DL (8.8-10.2); CARBON DIOXIDE LEVEL 26 MEQ/L (21-32); CHLORIDE LEVEL 107 MEQ/L (98-107); CREATININE FOR GFR 0.38 MG/DL (0.55-1.30); GLOMERULAR FILTRATION RATE > 60.0 (>39); GLUCOSE, FASTING 129 MG/DL (70-100); POTASSIUM SERUM 3.8 MEQ/L (3.5-5.1); SODIUM LEVEL 139 MEQ/L (136-145); TOTAL PROTEIN 6.1 GM/DL (6.4-8.2)
[2021-11-21] MEDS: APIXABAN 5 MG TAB (ELIQUIS) PO SCH (09:19)
[2021-11-21] MEDS: ATORVASTATIN 20 MG TAB PO SCH (09:20)
[2021-11-21] MEDS: **NOTE PATIENT COMMENT** MISC XX SCH (09:20)
[2021-11-21 14:00] VITALS: BP 118/78
[2021-11-21] MEDS: HEPARIN DRIP 25,000 UNITS in IV 1 EA IV SCH (21:50)
[2021-11-21 22:00] VITALS: BP 120/81
[2021-11-22 04:03] LABS: HEMATOCRIT 27.7 % (36.0-47.0); HEMOGLOBIN 8.2 g/dl (12.0-15.5); MEAN CORPUSCULAR HGB CONC 29.6 g/dl (32.0-36.5); MEAN CORPUSCULAR VOLUME 77.6 fl (80.0-96.0); PLATELET COUNT, AUTOMATED 422 10^3/uL (150-450); RED BLOOD COUNT 3.57 10^6/uL (4.00-5.40); WHITE BLOOD COUNT 12.4 10^3/uL (4.0-10.0)
[2021-11-22 04:22] LABS: ALBUMIN 1.4 GM/DL (3.2-5.2); ALT/SGPT 10 U/L (12-78); BILIRUBIN,TOTAL 0.3 MG/DL (0.2-1.0); BLOOD UREA NITROGEN 7 MG/DL (7-18); CALCIUM LEVEL 7.9 MG/DL (8.8-10.2); CARBON DIOXIDE LEVEL 23 MEQ/L (21-32); CHLORIDE LEVEL 112 MEQ/L (98-107); GLOMERULAR FILTRATION RATE > 60.0 (>39); GLUCOSE, FASTING 100 MG/DL (70-100); POTASSIUM SERUM 3.4 MEQ/L (3.5-5.1); SODIUM LEVEL 141 MEQ/L (136-145); TOTAL PROTEIN 6.8 GM/DL (6.4-8.2)
[2021-11-22] MEDS: NS 1,000 ML IV SCH ×2 (05:07→19:36)
[2021-11-22] MEDS: HEPARIN SOD (PORCINE) 5000UNITS/ML 1ML VIAL/SYRINGE IV PRN ×2 (05:07→11:36)
[2021-11-22 06:00] VITALS: BP 119/80
[2021-11-22] MEDS ORDERED: POTASSIUM CHLORIDE 10MEQ SR TABLET PO ONE (08:15)
[2021-11-22] MEDS: ATORVASTATIN 20 MG TAB PO SCH (08:56)
[2021-11-22] MEDS: **NOTE PATIENT COMMENT** MISC XX SCH (08:56)
[2021-11-22] MEDS: HEPARIN DRIP 25,000 UNITS in IV 1 EA IV SCH ×2 (11:38→20:31)
[2021-11-22 14:00] VITALS: BP 117/79
[2021-11-22] MEDS ORDERED: cefTRIAXone SOD 1 GM in D5W MINI-BAG PLUS 50 ML IV SCH (20:00)
[2021-11-22] MEDS: LIDOCAINE 5% (LIDODERM) PATCH TD SCH (20:25)
[2021-11-22 22:00] VITALS: BP 119/86
[2021-11-23] MEDS: HEPARIN SOD (PORCINE) 5000UNITS/ML 1ML VIAL/SYRINGE IV PRN ×2 (00:46→21:47)
[2021-11-23 06:00] VITALS: BP 112/77
[2021-11-23] MEDS: **NOTE PATIENT COMMENT** MISC XX SCH (08:23)
[2021-11-23] MEDS: ATORVASTATIN 20 MG TAB PO SCH (08:23)
[2021-11-23] MEDS: ACETAMINOPHEN TAB 650MG DOSE (2X325MG) PO PRN ×2 (09:12→21:53)
[2021-11-23 09:25] LABS: HEMATOCRIT 28.7 % (36.0-47.0); HEMOGLOBIN 8.5 g/dl (12.0-15.5); MEAN CORPUSCULAR HGB CONC 29.6 g/dl (32.0-36.5); MEAN CORPUSCULAR VOLUME 77.6 fl (80.0-96.0); PLATELET COUNT, AUTOMATED 493 10^3/uL (150-450); WHITE BLOOD COUNT 10.7 10^3/uL (4.0-10.0)
[2021-11-23 09:53] LABS: ALBUMIN 1.5 GM/DL (3.2-5.2); ALT/SGPT 12 U/L (12-78); BILIRUBIN,TOTAL 0.4 MG/DL (0.2-1.0); BLOOD UREA NITROGEN 4 MG/DL (7-18); CALCIUM LEVEL 7.8 MG/DL (8.8-10.2); CARBON DIOXIDE LEVEL 26 MEQ/L (21-32); CHLORIDE LEVEL 107 MEQ/L (98-107); GLOMERULAR FILTRATION RATE > 60.0 (>39); GLUCOSE, FASTING 139 MG/DL (70-100); POTASSIUM SERUM 3.4 MEQ/L (3.5-5.1); SODIUM LEVEL 139 MEQ/L (136-145); TOTAL PROTEIN 6.5 GM/DL (6.4-8.2)
[2021-11-23] MEDS: NS 1,000 ML IV SCH ×2 (12:26→22:55)
[2021-11-23] MEDS: POTASSIUM CHLORIDE 10MEQ SR TABLET PO SCH (13:13)
[2021-11-23 13:24] LABS: NT-PRO BNP 1279 PG/ML (<125)
[2021-11-23 14:00] VITALS: BP 112/77
[2021-11-23] MEDS: HEPARIN DRIP 25,000 UNITS in IV 1 EA IV SCH (17:19)
[2021-11-23] MEDS: LIDOCAINE 5% (LIDODERM) PATCH TD SCH (21:51)
[2021-11-23 22:00] VITALS: BP 132/86
[2021-11-24 04:40] LABS: HEMATOCRIT 25.5 % (36.0-47.0); HEMOGLOBIN 7.6 g/dl (12.0-15.5); MEAN CORPUSCULAR HEMOGLOBIN 22.9 pg (27.0-33.0); MEAN CORPUSCULAR HGB CONC 29.8 g/dl (32.0-36.5); MEAN CORPUSCULAR VOLUME 76.8 fl (80.0-96.0); PLATELET COUNT, AUTOMATED 475 10^3/uL (150-450); RED BLOOD COUNT 3.32 10^6/uL (4.00-5.40); WHITE BLOOD COUNT 11.3 10^3/uL (4.0-10.0)
[2021-11-24 05:12] LABS: ALBUMIN 1.3 GM/DL (3.2-5.2); ALT/SGPT 12 U/L (12-78); BILIRUBIN,TOTAL 0.3 MG/DL (0.2-1.0); BLOOD UREA NITROGEN 5 MG/DL (7-18); CALCIUM LEVEL 7.6 MG/DL (8.8-10.2); CARBON DIOXIDE LEVEL 25 MEQ/L (21-32); CHLORIDE LEVEL 113 MEQ/L (98-107); CREATININE FOR GFR 0.38 MG/DL (0.55-1.30); GLOMERULAR FILTRATION RATE > 60.0 (>39); GLUCOSE, FASTING 100 MG/DL (70-100); POTASSIUM SERUM 3.8 MEQ/L (3.5-5.1); SODIUM LEVEL 143 MEQ/L (136-145); TOTAL PROTEIN 5.7 GM/DL (6.4-8.2)
[2021-11-24 05:47] VITALS: BP 121/85
[2021-11-24 08:41] LABS: FERRITIN 783 NG/ML (8-252); IRON (FE) 11 UG/DL (50-170); PERCENT SATURATION 11.6 % (13.2-45.0); TOTAL IRON BINDING CAPACITY 95 UG/DL (250-450)
[2021-11-24] MEDS: **NOTE PATIENT COMMENT** MISC XX SCH (08:50)
[2021-11-24] MEDS: POTASSIUM CHLORIDE 10MEQ SR TABLET PO SCH (08:50)
[2021-11-24] MEDS: ATORVASTATIN 20 MG TAB PO SCH (08:50)
[2021-11-24 14:00] VITALS: BP 126/86
[2021-11-24] MEDS: NS 1,000 ML IV SCH (17:16)
[2021-11-24] MEDS ORDERED: FUROSEMIDE 20MG/2ML VIAL (J1940) IV ONE (19:20)
[2021-11-24] MEDS: LIDOCAINE 5% (LIDODERM) PATCH TD SCH (20:24)
[2021-11-24] MEDS: ACETAMINOPHEN TAB 650MG DOSE (2X325MG) PO PRN (20:30)
[2021-11-24 22:00] VITALS: BP 128/84
[2021-11-25 06:00] VITALS: BP 126/84
[2021-11-25 07:30] LABS: HEMATOCRIT 30.4 % (36.0-47.0); HEMOGLOBIN 9.1 g/dl (12.0-15.5); MEAN CORPUSCULAR HGB CONC 29.9 g/dl (32.0-36.5); PLATELET COUNT, AUTOMATED 578 10^3/uL (150-450); RED BLOOD COUNT 3.95 10^6/uL (4.00-5.40); WHITE BLOOD COUNT 9.9 10^3/uL (4.0-10.0)
[2021-11-25 07:59] LABS: ALBUMIN 1.6 GM/DL (3.2-5.2); ALT/SGPT 13 U/L (12-78); BILIRUBIN,TOTAL 0.3 MG/DL (0.2-1.0); BLOOD UREA NITROGEN 4 MG/DL (7-18); CALCIUM LEVEL 8.1 MG/DL (8.8-10.2); CARBON DIOXIDE LEVEL 26 MEQ/L (21-32); CHLORIDE LEVEL 105 MEQ/L (98-107); CREATININE FOR GFR 0.38 MG/DL (0.55-1.30); GLOMERULAR FILTRATION RATE > 60.0 (>39); GLUCOSE, FASTING 75 MG/DL (70-100); POTASSIUM SERUM 3.6 MEQ/L (3.5-5.1); SODIUM LEVEL 139 MEQ/L (136-145); TOTAL PROTEIN 6.7 GM/DL (6.4-8.2)
[2021-11-25] MEDS: NS 1,000 ML IV SCH ×2 (08:19→17:09)
[2021-11-25] MEDS: POTASSIUM CHLORIDE 10MEQ SR TABLET PO SCH (09:05)
[2021-11-25] MEDS: **NOTE PATIENT COMMENT** MISC XX SCH (09:05)
[2021-11-25] MEDS: ATORVASTATIN 20 MG TAB PO SCH (09:05)
[2021-11-25 14:00] VITALS: BP 121/65
[2021-11-25] MEDS: HEPARIN DRIP 25,000 UNITS in IV 1 EA IV SCH (17:05)
[2021-11-25] MEDS: LIDOCAINE 5% (LIDODERM) PATCH TD SCH (20:19)
[2021-11-25] MEDS: ACETAMINOPHEN TAB 650MG DOSE (2X325MG) PO PRN (20:20)
[2021-11-25 22:00] VITALS: BP 117/67
[2021-11-26 06:09] VITALS: BP 119/82
[2021-11-26 07:07] LABS: HEMATOCRIT 26.9 % (36.0-47.0); HEMOGLOBIN 8.2 g/dl (12.0-15.5); MEAN CORPUSCULAR HGB CONC 30.5 g/dl (32.0-36.5); MEAN CORPUSCULAR VOLUME 75.6 fl (80.0-96.0); PLATELET COUNT, AUTOMATED 528 10^3/uL (150-450); RED BLOOD COUNT 3.56 10^6/uL (4.00-5.40); WHITE BLOOD COUNT 10.3 10^3/uL (4.0-10.0)
[2021-11-26 07:47] LABS: ALBUMIN 1.4 GM/DL (3.2-5.2); ALT/SGPT 13 U/L (12-78); BILIRUBIN,TOTAL 0.3 MG/DL (0.2-1.0); BLOOD UREA NITROGEN 4 MG/DL (7-18); CALCIUM LEVEL 8.1 MG/DL (8.8-10.2); CARBON DIOXIDE LEVEL 26 MEQ/L (21-32); CHLORIDE LEVEL 109 MEQ/L (98-107); CREATININE FOR GFR 0.34 MG/DL (0.55-1.30); GLOMERULAR FILTRATION RATE > 60.0 (>39); GLUCOSE, FASTING 95 MG/DL (70-100); POTASSIUM SERUM 3.9 MEQ/L (3.5-5.1); SODIUM LEVEL 142 MEQ/L (136-145); TOTAL PROTEIN 6.1 GM/DL (6.4-8.2)
[2021-11-26] MEDS: **NOTE PATIENT COMMENT** MISC XX SCH (09:00)
[2021-11-26] MEDS: POTASSIUM CHLORIDE 10MEQ SR TABLET PO SCH (09:26)
[2021-11-26] MEDS: ATORVASTATIN 20 MG TAB PO SCH (09:26)
[2021-11-26 14:00] VITALS: BP 140/93
[2021-11-26] MEDS: NS 1,000 ML IV SCH ×2 (14:09→17:26)
[2021-11-26] MEDS: HEPARIN DRIP 25,000 UNITS in IV 1 EA IV SCH (14:52)
[2021-11-26] MEDS: LIDOCAINE 5% (LIDODERM) PATCH TD SCH (20:30)
[2021-11-26] MEDS: METOPROLOL TART 25 MG TABLET PO SCH (20:41)
[2021-11-26 22:00] VITALS: BP 131/86
[2021-11-27] VITALS (10 sets, daily range): BP systolic 99–131; BP diastolic 16–93
[2021-11-27 07:12] LABS: HEMATOCRIT 30.2 % (36.0-47.0); MEAN CORPUSCULAR HEMOGLOBIN 22.8 pg (27.0-33.0); MEAN CORPUSCULAR HGB CONC 29.8 g/dl (32.0-36.5); MEAN CORPUSCULAR VOLUME 76.5 fl (80.0-96.0); PLATELET COUNT, AUTOMATED 475 10^3/uL (150-450); RED BLOOD COUNT 3.95 10^6/uL (4.00-5.40); WHITE BLOOD COUNT 11.6 10^3/uL (4.0-10.0)
[2021-11-27 07:50] LABS: ALBUMIN 1.6 GM/DL (3.2-5.2); ALT/SGPT 15 U/L (12-78); BILIRUBIN,TOTAL 0.3 MG/DL (0.2-1.0); BLOOD UREA NITROGEN 3 MG/DL (7-18); CALCIUM LEVEL 8.5 MG/DL (8.8-10.2); CARBON DIOXIDE LEVEL 29 MEQ/L (21-32); CHLORIDE LEVEL 105 MEQ/L (98-107); CREATININE FOR GFR 0.52 MG/DL (0.55-1.30); GLOMERULAR FILTRATION RATE > 60.0 (>39); GLUCOSE, FASTING 106 MG/DL (70-100); POTASSIUM SERUM 3.7 MEQ/L (3.5-5.1); SODIUM LEVEL 139 MEQ/L (136-145); TOTAL PROTEIN 6.9 GM/DL (6.4-8.2)
[2021-11-27] MEDS: METOPROLOL TART 25 MG TABLET PO SCH ×2 (08:07→20:42)
[2021-11-27 08:29] LABS: INR 1.21; PROTHROMBIN TIME 15.7 SECONDS (12.7-14.5)
[2021-11-27 08:31] LABS: PARTIAL THROMBOPLASTIN TIME 67.2 SECONDS (25.9-37.0)
[2021-11-27] MEDS: **NOTE PATIENT COMMENT** MISC XX SCH (09:00)
[2021-11-27] MEDS ORDERED: propofoL 200 MG/20 ML VIAL As Ordered ONE (09:29)
[2021-11-27] MEDS ORDERED: ONDANSETRON 4MG/2ML VIAL As Ordered ONE (09:29)
[2021-11-27] MEDS ORDERED: fentaNYL 100 MCG/2 ML INJECTION (J3010) As Ordered ONE (09:29)
[2021-11-27] MEDS ORDERED: ROCURONIUM BROMIDE 50 MG/5 ML VIAL As Ordered ONE (09:29)
[2021-11-27] MEDS ORDERED: LIDOCAINE 2% 100MG/5ML SDV (FOR ANES.) As Ordered ONE (09:29)
[2021-11-27] MEDS ORDERED: ETOMIDATE INJ 20MG/10ML VIAL As Ordered ONE (09:29)
[2021-11-27] MEDS ORDERED: MIDAZOLAM INJ 2MG/2ML VIAL (J2250 PER 1MG) As Ordered ONE (09:29)
[2021-11-27] MEDS ORDERED: dexameTHASONE 4 MG/ML 1ML VIAL (J1100 PER 1MG) As Ordered ONE (09:33)
[2021-11-27] MEDS ORDERED: SUGAMMADEX SODIUM 500 MG/5 ML VIAL (BRIDION) As Ordered ONE (09:39)
[2021-11-27] MEDS ORDERED: PHENYLephrine 500MCG 5ML (100MCG/ML) SYRINGE As Ordered ONE (09:40)
[2021-11-27] MEDS ORDERED: CETACAINE SPRAY 5GM As Ordered ONE (09:56)
[2021-11-27] MEDS ORDERED: EPINEPHrine 1MG/10ML SYRINGE 1.5IN As Ordered ONE (10:11)
[2021-11-27] MEDS ORDERED: ONDANSETRON 4MG/2ML VIAL IV PRN (10:30)
[2021-11-27] MEDS ORDERED: fentaNYL 100 MCG/2 ML INJECTION (J3010) IV PRN (10:30)
[2021-11-27] MEDS ORDERED: LR 1,000 ML IV SCH (10:30)
[2021-11-27] MEDS ORDERED: METOCLOPRAMIDE INJ 10MG/2ML VIAL (J2765 PER 1) IV PRN (10:30)
[2021-11-27] MEDS ORDERED: ACETAMINOPHEN TAB 650MG DOSE (2X325MG) PO PRN (10:35)
[2021-11-27] MEDS: POTASSIUM CHLORIDE 10MEQ SR TABLET PO SCH (12:51)
[2021-11-27] MEDS: APIXABAN 5 MG TAB (ELIQUIS) PO SCH ×2 (12:51→20:40)
[2021-11-27] MEDS: ATORVASTATIN 20 MG TAB PO SCH (12:51)
[2021-11-27] MEDS: LIDOCAINE 5% (LIDODERM) PATCH TD SCH (20:42)
[2021-11-28] VITALS (8 sets, daily range): BP systolic 106–134; BP diastolic 69–77
[2021-11-28 05:57] LABS: HEMATOCRIT 27.2 % (36.0-47.0); HEMOGLOBIN 8.2 g/dl (12.0-15.5); MEAN CORPUSCULAR HGB CONC 30.1 g/dl (32.0-36.5); MEAN CORPUSCULAR VOLUME 76.4 fl (80.0-96.0); PLATELET COUNT, AUTOMATED 408 10^3/uL (150-450); RED BLOOD COUNT 3.56 10^6/uL (4.00-5.40); WHITE BLOOD COUNT 13.1 10^3/uL (4.0-10.0)
[2021-11-28 06:13] LABS: INR 1.7; PROTHROMBIN TIME 20.4 SECONDS (12.7-14.5)
[2021-11-28 06:14] LABS: PARTIAL THROMBOPLASTIN TIME 53.7 SECONDS (25.9-37.0)
[2021-11-28 06:22] LABS: ALBUMIN 1.4 GM/DL (3.2-5.2); ALT/SGPT 13 U/L (12-78); BILIRUBIN,TOTAL 0.3 MG/DL (0.2-1.0); BLOOD UREA NITROGEN 7 MG/DL (7-18); CALCIUM LEVEL 8.8 MG/DL (8.8-10.2); CARBON DIOXIDE LEVEL 27 MEQ/L (21-32); CHLORIDE LEVEL 108 MEQ/L (98-107); GLOMERULAR FILTRATION RATE > 60.0 (>39); GLUCOSE, FASTING 137 MG/DL (70-100); SODIUM LEVEL 141 MEQ/L (136-145); TOTAL PROTEIN 6.9 GM/DL (6.4-8.2)
[2021-11-28] MEDS ORDERED: ACET1TAB55 PO (07:59)
[2021-11-28] MEDS ORDERED: METO1TAB87 PO ×2 (07:59→08:02)
[2021-11-28] MEDS ORDERED: ATOR40TA75 PO (07:59)
[2021-11-28] MEDS: **NOTE PATIENT COMMENT** MISC XX SCH (09:00)
[2021-11-28] MEDS: ATORVASTATIN 20 MG TAB PO SCH (09:05)
[2021-11-28] MEDS: POTASSIUM CHLORIDE 10MEQ SR TABLET PO SCH (09:05)
[2021-11-28] MEDS: METOPROLOL TART 25 MG TABLET PO SCH ×2 (09:06→20:35)
[2021-11-28] MEDS: APIXABAN 5 MG TAB (ELIQUIS) PO SCH (09:06)
[2021-11-28] MEDS ORDERED: ASPIRIN 81MG ENTERIC TABLET PO SCH (10:05)
[2021-11-28] MEDS: levETIRAcetam 250MG TABLET (KEPPRA) PO SCH ×2 (11:41→20:35)
[2021-11-28] MEDS: ACETAMINOPHEN TAB 650MG DOSE (2X325MG) PO PRN (16:16)
[2021-11-28] MEDS: ENOXAPARIN 80MG/0.8ML SYRINGE (J1650 PER 10MG) SC SCH (20:35)
[2021-11-28] MEDS: LIDOCAINE 5% (LIDODERM) PATCH TD SCH (20:36)
[2021-11-29] VITALS: BP 122/82
[2021-11-29 04:00] VITALS: BP 111/72
[2021-11-29 06:35] LABS: HEMATOCRIT 30.5 % (36.0-47.0); MEAN CORPUSCULAR HEMOGLOBIN 22.9 pg (27.0-33.0); MEAN CORPUSCULAR HGB CONC 29.5 g/dl (32.0-36.5); MEAN CORPUSCULAR VOLUME 77.6 fl (80.0-96.0); PLATELET COUNT, AUTOMATED 510 10^3/uL (150-450); RED BLOOD COUNT 3.93 10^6/uL (4.00-5.40); WHITE BLOOD COUNT 13.5 10^3/uL (4.0-10.0)
[2021-11-29 06:45] LABS: INR 1.27; PROTHROMBIN TIME 16.4 SECONDS (12.7-14.5)
[2021-11-29 06:46] LABS: PARTIAL THROMBOPLASTIN TIME 41.1 SECONDS (25.9-37.0)
[2021-11-29 06:53] LABS: ALBUMIN 1.7 GM/DL (3.2-5.2); ALT/SGPT 14 U/L (12-78); BILIRUBIN,TOTAL 0.2 MG/DL (0.2-1.0); BLOOD UREA NITROGEN 10 MG/DL (7-18); CALCIUM LEVEL 8.9 MG/DL (8.8-10.2); CARBON DIOXIDE LEVEL 28 MEQ/L (21-32); CHLORIDE LEVEL 106 MEQ/L (98-107); CREATININE FOR GFR 0.59 MG/DL (0.55-1.30); GLOMERULAR FILTRATION RATE > 60.0 (>39); GLUCOSE, FASTING 80 MG/DL (70-100); POTASSIUM SERUM 3.8 MEQ/L (3.5-5.1); SODIUM LEVEL 141 MEQ/L (136-145); TOTAL PROTEIN 7.5 GM/DL (6.4-8.2)
[2021-11-29 08:00] VITALS: BP 124/74
[2021-11-29] MEDS: ATORVASTATIN 20 MG TAB PO SCH (08:38)
[2021-11-29] MEDS: POTASSIUM CHLORIDE 10MEQ SR TABLET PO SCH (08:38)
[2021-11-29] MEDS: levETIRAcetam 250MG TABLET (KEPPRA) PO SCH ×2 (08:38→20:58)
[2021-11-29] MEDS: NS 1,000 ML IV SCH ×2 (08:38→20:57)
[2021-11-29] MEDS: **NOTE PATIENT COMMENT** MISC XX SCH (08:39)
[2021-11-29 12:00] VITALS: BP 142/88
[2021-11-29 16:00] VITALS: BP 131/78
[2021-11-29 20:00] VITALS: BP 131/76
[2021-11-29] MEDS: ENOXAPARIN 80MG/0.8ML SYRINGE (J1650 PER 10MG) SC SCH (20:58)
[2021-11-29] MEDS: LIDOCAINE 5% (LIDODERM) PATCH TD SCH (20:58)
[2021-11-30] VITALS: BP 128/79
[2021-11-30 04:00] VITALS: BP 141/85
[2021-11-30 05:24] LABS: HEMATOCRIT 31.7 % (36.0-47.0); HEMOGLOBIN 9.2 g/dl (12.0-15.5); MEAN CORPUSCULAR HEMOGLOBIN 22.7 pg (27.0-33.0); MEAN CORPUSCULAR VOLUME 78.1 fl (80.0-96.0); PLATELET COUNT, AUTOMATED 421 10^3/uL (150-450); RED BLOOD COUNT 4.06 10^6/uL (4.00-5.40); WHITE BLOOD COUNT 10.2 10^3/uL (4.0-10.0)
[2021-11-30 05:46] LABS: ALBUMIN 1.6 GM/DL (3.2-5.2); ALT/SGPT 12 U/L (12-78); BILIRUBIN,TOTAL 0.2 MG/DL (0.2-1.0); BLOOD UREA NITROGEN 6 MG/DL (7-18); CALCIUM LEVEL 8.3 MG/DL (8.8-10.2); CARBON DIOXIDE LEVEL 25 MEQ/L (21-32); CHLORIDE LEVEL 105 MEQ/L (98-107); CREATININE FOR GFR 0.47 MG/DL (0.55-1.30); GLOMERULAR FILTRATION RATE > 60.0 (>39); GLUCOSE, FASTING 84 MG/DL (70-100); POTASSIUM SERUM 3.3 MEQ/L (3.5-5.1); SODIUM LEVEL 137 MEQ/L (136-145); TOTAL PROTEIN 7.1 GM/DL (6.4-8.2)
[2021-11-30 07:52] VITALS: BP 136/80
[2021-11-30] MEDS: **NOTE PATIENT COMMENT** MISC XX SCH (08:50)
[2021-11-30] MEDS: levETIRAcetam 250MG TABLET (KEPPRA) PO SCH ×2 (09:02→20:42)
[2021-11-30] MEDS: NS 1,000 ML IV SCH ×2 (09:03→22:07)
[2021-11-30] MEDS: POTASSIUM CHLORIDE 10MEQ SR TABLET PO SCH ×2 (09:03→20:42)
[2021-11-30] MEDS: ATORVASTATIN 20 MG TAB PO SCH (09:03)
[2021-11-30 12:04] VITALS: BP 123/86
[2021-11-30 16:04] VITALS: BP 121/76
[2021-11-30 20:00] VITALS: BP 131/81
[2021-11-30] MEDS: ENOXAPARIN 80MG/0.8ML SYRINGE (J1650 PER 10MG) SC SCH (20:42)
[2021-11-30] MEDS: LIDOCAINE 5% (LIDODERM) PATCH TD SCH (20:43)
[2021-12-01] VITALS: BP 131/87
[2021-12-01 04:00] VITALS: BP 136/84
[2021-12-01 05:47] LABS: HEMOGLOBIN 9.2 g/dl (12.0-15.5); MEAN CORPUSCULAR HEMOGLOBIN 22.4 pg (27.0-33.0); MEAN CORPUSCULAR HGB CONC 29.7 g/dl (32.0-36.5); MEAN CORPUSCULAR VOLUME 75.6 fl (80.0-96.0); PLATELET COUNT, AUTOMATED 477 10^3/uL (150-450); WHITE BLOOD COUNT 13.1 10^3/uL (4.0-10.0)
[2021-12-01 06:08] LABS: BLOOD UREA NITROGEN 7 MG/DL (7-18); CALCIUM LEVEL 7.9 MG/DL (8.8-10.2); CARBON DIOXIDE LEVEL 24 MEQ/L (21-32); CHLORIDE LEVEL 104 MEQ/L (98-107); GLOMERULAR FILTRATION RATE > 60.0 (>39); GLUCOSE, FASTING 86 MG/DL (70-100); POTASSIUM SERUM 4.1 MEQ/L (3.5-5.1); SODIUM LEVEL 136 MEQ/L (136-145)
[2021-12-01 08:00] VITALS: BP 141/81
[2021-12-01] MEDS: **NOTE PATIENT COMMENT** MISC XX SCH (09:00)
[2021-12-01] MEDS: levETIRAcetam 250MG TABLET (KEPPRA) PO SCH ×2 (09:42→22:13)
[2021-12-01] MEDS: POTASSIUM CHLORIDE 10MEQ SR TABLET PO SCH ×2 (09:42→22:12)
[2021-12-01] MEDS: ATORVASTATIN 20 MG TAB PO SCH (09:42)
[2021-12-01] MEDS: NS 1,000 ML IV SCH (11:45)
[2021-12-01 12:00] VITALS: BP 120/72
[2021-12-01 16:00] VITALS: BP 111/73
[2021-12-01 20:00] VITALS: BP 137/80
[2021-12-01] MEDS: LIDOCAINE 5% (LIDODERM) PATCH TD SCH (21:00)
[2021-12-01] MEDS: ENOXAPARIN 80MG/0.8ML SYRINGE (J1650 PER 10MG) SC SCH (22:14)
[2021-12-02] VITALS: BP 135/80
[2021-12-02] MEDS: NS 1,000 ML IV SCH ×2 (00:08→12:34)
[2021-12-02 04:00] VITALS: BP 132/78
[2021-12-02 05:12] LABS: HEMATOCRIT 29.7 % (36.0-47.0); MEAN CORPUSCULAR HEMOGLOBIN 22.9 pg (27.0-33.0); MEAN CORPUSCULAR HGB CONC 30.3 g/dl (32.0-36.5); MEAN CORPUSCULAR VOLUME 75.6 fl (80.0-96.0); PLATELET COUNT, AUTOMATED 384 10^3/uL (150-450); RED BLOOD COUNT 3.93 10^6/uL (4.00-5.40); WHITE BLOOD COUNT 12.7 10^3/uL (4.0-10.0)
[2021-12-02 05:35] LABS: BLOOD UREA NITROGEN 8 MG/DL (7-18); CALCIUM LEVEL 7.8 MG/DL (8.8-10.2); CARBON DIOXIDE LEVEL 24 MEQ/L (21-32); CHLORIDE LEVEL 104 MEQ/L (98-107); CREATININE FOR GFR 0.46 MG/DL (0.55-1.30); GLOMERULAR FILTRATION RATE > 60.0 (>39); GLUCOSE, FASTING 107 MG/DL (70-100); MAGNESIUM LEVEL 1.8 MG/DL (1.8-2.4); SODIUM LEVEL 135 MEQ/L (136-145)
[2021-12-02 08:12] VITALS: BP 131/83
[2021-12-02] MEDS: ATORVASTATIN 20 MG TAB PO SCH (08:29)
[2021-12-02] MEDS: levETIRAcetam 250MG TABLET (KEPPRA) PO SCH ×2 (08:30→20:57)
[2021-12-02] MEDS: POTASSIUM CHLORIDE 10MEQ SR TABLET PO SCH ×2 (08:30→20:57)
[2021-12-02] MEDS: **NOTE PATIENT COMMENT** MISC XX SCH (08:31)
[2021-12-02 11:36] VITALS: BP 112/76
[2021-12-02 15:20] VITALS: BP 121/75
[2021-12-02 20:00] VITALS: BP 126/79
[2021-12-02] MEDS: ENOXAPARIN 80MG/0.8ML SYRINGE (J1650 PER 10MG) SC SCH (20:58)
[2021-12-02] MEDS: LIDOCAINE 5% (LIDODERM) PATCH TD SCH (20:59)
[2021-12-03] VITALS: BP 123/78
[2021-12-03] MEDS: NS 1,000 ML IV SCH (01:00)
[2021-12-03 04:00] VITALS: BP 119/76
[2021-12-03 05:21] LABS: HEMATOCRIT 28.4 % (36.0-47.0); HEMOGLOBIN 8.6 g/dl (12.0-15.5); MEAN CORPUSCULAR HEMOGLOBIN 23.1 pg (27.0-33.0); MEAN CORPUSCULAR HGB CONC 30.3 g/dl (32.0-36.5); MEAN CORPUSCULAR VOLUME 76.3 fl (80.0-96.0); PLATELET COUNT, AUTOMATED 401 10^3/uL (150-450); RED BLOOD COUNT 3.72 10^6/uL (4.00-5.40); WHITE BLOOD COUNT 12.1 10^3/uL (4.0-10.0)
[2021-12-03 05:41] LABS: BLOOD UREA NITROGEN 6 MG/DL (7-18); CALCIUM LEVEL 7.9 MG/DL (8.8-10.2); CARBON DIOXIDE LEVEL 24 MEQ/L (21-32); CHLORIDE LEVEL 105 MEQ/L (98-107); GLOMERULAR FILTRATION RATE > 60.0 (>39); GLUCOSE, FASTING 112 MG/DL (70-100); MAGNESIUM LEVEL 2.1 MG/DL (1.8-2.4); POTASSIUM SERUM 4.2 MEQ/L (3.5-5.1); SODIUM LEVEL 136 MEQ/L (136-145)
[2021-12-03 08:00] VITALS: BP 112/68
[2021-12-03] MEDS: levETIRAcetam 250MG TABLET (KEPPRA) PO SCH ×2 (08:11→21:38)
[2021-12-03] MEDS: ATORVASTATIN 20 MG TAB PO SCH (08:11)
[2021-12-03] MEDS: POTASSIUM CHLORIDE 10MEQ SR TABLET PO SCH ×2 (08:11→21:38)
[2021-12-03] MEDS: **NOTE PATIENT COMMENT** MISC XX SCH (09:00)
[2021-12-03 12:00] VITALS: BP 103/71
[2021-12-03] MEDS ORDERED: ONDANSETRON 4 MG TAB PO SCH (12:00)
[2021-12-03 16:00] VITALS: BP 124/71
[2021-12-03] MEDS: ONDANSETRON 4 MG TAB PO PRN (16:46)
[2021-12-03 20:00] VITALS: BP 116/72
[2021-12-03] MEDS: LIDOCAINE 5% (LIDODERM) PATCH TD SCH (21:00)
[2021-12-03] MEDS: ENOXAPARIN 80MG/0.8ML SYRINGE (J1650 PER 10MG) SC SCH (21:39)
[2021-12-04] VITALS: BP 146/65
[2021-12-04 04:00] VITALS: BP 118/78
[2021-12-04 06:13] LABS: HEMATOCRIT 30.8 % (36.0-47.0); HEMOGLOBIN 9.2 g/dl (12.0-15.5); MEAN CORPUSCULAR HEMOGLOBIN 22.7 pg (27.0-33.0); MEAN CORPUSCULAR HGB CONC 29.9 g/dl (32.0-36.5); MEAN CORPUSCULAR VOLUME 75.9 fl (80.0-96.0); PLATELET COUNT, AUTOMATED 460 10^3/uL (150-450); RED BLOOD COUNT 4.06 10^6/uL (4.00-5.40); WHITE BLOOD COUNT 11.6 10^3/uL (4.0-10.0)
[2021-12-04 06:28] LABS: BLOOD UREA NITROGEN 5 MG/DL (7-18); CALCIUM LEVEL 8.7 MG/DL (8.8-10.2); CARBON DIOXIDE LEVEL 28 MEQ/L (21-32); CHLORIDE LEVEL 101 MEQ/L (98-107); CREATININE FOR GFR 0.42 MG/DL (0.55-1.30); GLOMERULAR FILTRATION RATE > 60.0 (>39); GLUCOSE, FASTING 108 MG/DL (70-100); MAGNESIUM LEVEL 2.1 MG/DL (1.8-2.4); POTASSIUM SERUM 4.3 MEQ/L (3.5-5.1); SODIUM LEVEL 136 MEQ/L (136-145)
[2021-12-04 08:00] VITALS: BP 124/73
[2021-12-04] MEDS: **NOTE PATIENT COMMENT** MISC XX SCH (09:00)
[2021-12-04] MEDS: levETIRAcetam 250MG TABLET (KEPPRA) PO SCH ×2 (09:09→21:33)
[2021-12-04] MEDS: ATORVASTATIN 20 MG TAB PO SCH (09:10)
[2021-12-04] MEDS: POTASSIUM CHLORIDE 10MEQ SR TABLET PO SCH ×2 (09:10→21:33)
[2021-12-04] MEDS: ONDANSETRON 4 MG TAB PO PRN (10:31)
[2021-12-04 12:00] VITALS: BP 108/70
[2021-12-04 16:00] VITALS: BP 115/68
[2021-12-04 20:00] VITALS: BP 104/70
[2021-12-04] MEDS: LIDOCAINE 5% (LIDODERM) PATCH TD SCH (21:00)
[2021-12-04] MEDS: ENOXAPARIN 80MG/0.8ML SYRINGE (J1650 PER 10MG) SC SCH (21:33)
[2021-12-05 04:00] VITALS: BP 106/71
[2021-12-05 05:30] LABS: HEMATOCRIT 30.9 % (36.0-47.0); HEMOGLOBIN 9.2 g/dl (12.0-15.5); MEAN CORPUSCULAR HEMOGLOBIN 22.5 pg (27.0-33.0); MEAN CORPUSCULAR HGB CONC 29.8 g/dl (32.0-36.5); MEAN CORPUSCULAR VOLUME 75.7 fl (80.0-96.0); PLATELET COUNT, AUTOMATED 379 10^3/uL (150-450); RED BLOOD COUNT 4.08 10^6/uL (4.00-5.40); WHITE BLOOD COUNT 11.8 10^3/uL (4.0-10.0)
[2021-12-05 05:58] LABS: BLOOD UREA NITROGEN 7 MG/DL (7-18); CALCIUM LEVEL 8.6 MG/DL (8.8-10.2); CARBON DIOXIDE LEVEL 26 MEQ/L (21-32); CHLORIDE LEVEL 99 MEQ/L (98-107); CREATININE FOR GFR 0.47 MG/DL (0.55-1.30); GLOMERULAR FILTRATION RATE > 60.0 (>39); GLUCOSE, FASTING 118 MG/DL (70-100); MAGNESIUM LEVEL 2.1 MG/DL (1.8-2.4); POTASSIUM SERUM 4.3 MEQ/L (3.5-5.1); SODIUM LEVEL 133 MEQ/L (136-145)
[2021-12-05 08:00] VITALS: BP 101/65
[2021-12-05] MEDS: **NOTE PATIENT COMMENT** MISC XX SCH (09:00)
[2021-12-05] MEDS ORDERED: KEPP250T5 PO (09:19)
[2021-12-05] MEDS ORDERED: LOVE0.6I2 SC (09:19)
[2021-12-05] MEDS ORDERED: POTA-136 PO (09:19)
[2021-12-05] MEDS: levETIRAcetam 250MG TABLET (KEPPRA) PO SCH (10:00)
[2021-12-05] MEDS: ATORVASTATIN 20 MG TAB PO SCH (10:01)
[2021-12-05] MEDS: POTASSIUM CHLORIDE 10MEQ SR TABLET PO SCH (10:01)
== END 2021-12-05 11:40 | DRG 65 ==
LOC: EDBD 10:17 → M ED 10:17 → M ED INP 12:04 → ENRESERV 13:26 → M MSPAV 16:29 → M PCU 11-28 12:25
PROVIDERS: ADMIT Internal Medicine; ATTEND Internal Medicine
PROC: 0BJ08ZZ Inspection of Tracheobronchial Tree, Via Natural or Artificial Opening Endoscopic (ICD-10-PCS; 2021-11-27)
PROC: 0BB28ZX Excision of Carina, Via Natural or Artificial Opening Endoscopic, Diagnostic (ICD-10-PCS; principal; 2021-11-27 09:00)
DX: I63.9 Cerebral infarction, unspecified (principal); I69.354 Hemiplegia and hemiparesis following cerebral infarction affecting left non-dominant side; C34.12 Malignant neoplasm of upper lobe, left bronchus or lung; C79.31 Secondary malignant neoplasm of brain; G40.209 Localization-related (focal) (partial) symptomatic epilepsy and epileptic syndromes with complex partial seizures, not intractable, without status epilepticus; Z86.711 Personal history of pulmonary embolism; Z86.718 Personal history of other venous thrombosis and embolism; D50.9 Iron deficiency anemia, unspecified; M19.90 Unspecified osteoarthritis, unspecified site; Z20.822 Contact with and (suspected) exposure to COVID-19; Z79.01 Long term (current) use of anticoagulants; Z79.899 Other long term (current) drug therapy; F17.210 Nicotine dependence, cigarettes, uncomplicated; J44.9 Chronic obstructive pulmonary disease, unspecified; I69.322 Dysarthria following cerebral infarction; I69.398 Other sequelae of cerebral infarction; I27.20 Pulmonary hypertension, unspecified; E87.6 Hypokalemia

== ENCOUNTER 2021-12-05 10:37 | Inpatient (IN) | payer MEDICARE, OTHER ==
[~2021-12-05] VITALS: Ht 162.6 cm; Wt 44.8 kg
[~2021-12-05 10:37] MED LIST changes: +ACET1TAB55 PO; +ATOR40TA75 PO; +ELIQ5TAB PO; +KEPP250T5 PO; +LOVE0.6I2 SC; +METO1TAB87 PO; +POTA-136 PO
[2021-12-05] MEDS ORDERED: ONDANSETRON 4 MG TAB PO PRN (11:50)
[2021-12-05 11:55] VITALS: BP 129/57
[2021-12-05] MEDS ORDERED: HOME MED LIST COMPLETE! XX SCH (12:15)
[2021-12-05] MEDS: COMBIVENT RESPIMAT 100-20MCG INHALER 4GM INH SCH ×2 (15:07→19:30)
[2021-12-05] MEDS: REMEDY PHYTOPLEX Z-GUARD PASTE 113GM TUBE (FROM STOREROOM PRODUCT) TOP SCH ×2 (16:00→20:58)
[2021-12-05] MEDS ORDERED: BISACODYL 10 MG SUPP PR ONE (16:05)
[2021-12-05] MEDS: PANTOPRAZOLE 40MG TAB (PROTONIX) PO SCH (16:33)
[2021-12-05 20:00] VITALS: BP 111/75
[2021-12-05] MEDS: SENNA 8.6 MG TAB (SENOKOT) PO SCH (20:56)
[2021-12-05] MEDS: levETIRAcetam 250MG TABLET (KEPPRA) PO SCH (20:56)
[2021-12-05] MEDS: POTASSIUM CHLORIDE 10MEQ SR TABLET PO SCH (20:56)
[2021-12-05] MEDS: ENOXAPARIN 80MG/0.8ML SYRINGE (J1650 PER 10MG) SC SCH (20:56)
[2021-12-05] MEDS: LIDOCAINE 5% (LIDODERM) PATCH TD SCH ×2 (20:57→21:00)
[2021-12-05] MEDS: DOCUSATE SODIUM 100MG CAPSULE PO SCH (20:59)
[2021-12-06 05:55] VITALS: BP 117/73
[2021-12-06 07:05] LABS: BASO # 0.1 10^3/uL (0.0-0.2); BASO % 0.7 % (0.0-1.0); EOS % 0.2 % (0.0-3.0); HEMATOCRIT 33.6 % (36.0-47.0); HEMOGLOBIN 9.9 g/dl (12.0-15.5); LYMPH # 2.3 10^3/uL (1.5-5.0); MEAN CORPUSCULAR HEMOGLOBIN 22.5 pg (27.0-33.0); MEAN CORPUSCULAR HGB CONC 29.5 g/dl (32.0-36.5); MEAN CORPUSCULAR VOLUME 76.4 fl (80.0-96.0); MONO % 12.3 % (2.0-8.0); PLATELET COUNT, AUTOMATED 421 10^3/uL (150-450); WHITE BLOOD COUNT 14.2 10^3/uL (4.0-10.0)
[2021-12-06] MEDS: COMBIVENT RESPIMAT 100-20MCG INHALER 4GM INH SCH ×3 (07:25→20:37)
[2021-12-06 07:26] LABS: ALBUMIN 1.8 GM/DL (3.2-5.2); ALT/SGPT 18 U/L (12-78); BILIRUBIN,TOTAL 0.4 MG/DL (0.2-1.0); BLOOD UREA NITROGEN 12 MG/DL (7-18); CARBON DIOXIDE LEVEL 28 MEQ/L (21-32); CHLORIDE LEVEL 101 MEQ/L (98-107); CREATININE FOR GFR 0.56 MG/DL (0.55-1.30); GLOMERULAR FILTRATION RATE > 60.0 (>39); GLUCOSE, FASTING 119 MG/DL (70-100); POTASSIUM SERUM 5.1 MEQ/L (3.5-5.1); SODIUM LEVEL 133 MEQ/L (136-145); TOTAL PROTEIN 7.4 GM/DL (6.4-8.2)
[2021-12-06 07:43] LABS: MONO # 1.8 10^3/uL (0.0-0.8)
[2021-12-06] MEDS: PANTOPRAZOLE 40MG TAB (PROTONIX) PO SCH (09:05)
[2021-12-06] MEDS: ATORVASTATIN 20 MG TAB PO SCH (09:05)
[2021-12-06] MEDS: DOCUSATE SODIUM 100MG CAPSULE PO SCH ×2 (09:06→20:38)
[2021-12-06] MEDS: levETIRAcetam 250MG TABLET (KEPPRA) PO SCH ×2 (09:06→20:38)
[2021-12-06] MEDS: POTASSIUM CHLORIDE 10MEQ SR TABLET PO SCH ×2 (09:06→20:38)
[2021-12-06] MEDS: MIRALAX *UNIT DOSE* 17GM PACKET PO SCH (09:06)
[2021-12-06] MEDS: REMEDY PHYTOPLEX Z-GUARD PASTE 113GM TUBE (FROM STOREROOM PRODUCT) TOP SCH ×3 (09:07→20:40)
[2021-12-06] MEDS: **NOTE PATIENT COMMENT** MISC XX SCH (09:08)
[2021-12-06 14:00] VITALS: BP 102/68
[2021-12-06 20:00] VITALS: BP 107/69
[2021-12-06] MEDS: SENNA 8.6 MG TAB (SENOKOT) PO SCH (20:38)
[2021-12-06] MEDS: ENOXAPARIN 80MG/0.8ML SYRINGE (J1650 PER 10MG) SC SCH (20:38)
[2021-12-06] MEDS: LIDOCAINE 5% (LIDODERM) PATCH TD SCH (20:39)
[2021-12-07 06:00] VITALS: BP 110/76
[2021-12-07] MEDS: PANTOPRAZOLE 40MG TAB (PROTONIX) PO SCH (07:20)
[2021-12-07] MEDS: DOCUSATE SODIUM 100MG CAPSULE PO SCH (07:21)
[2021-12-07] MEDS: MIRALAX *UNIT DOSE* 17GM PACKET PO SCH (07:21)
[2021-12-07] MEDS: POTASSIUM CHLORIDE 10MEQ SR TABLET PO SCH ×2 (07:21→20:38)
[2021-12-07] MEDS: ATORVASTATIN 20 MG TAB PO SCH (07:21)
[2021-12-07] MEDS: levETIRAcetam 250MG TABLET (KEPPRA) PO SCH ×2 (07:21→20:38)
[2021-12-07] MEDS: REMEDY PHYTOPLEX Z-GUARD PASTE 113GM TUBE (FROM STOREROOM PRODUCT) TOP SCH ×3 (07:22→20:39)
[2021-12-07] MEDS: **NOTE PATIENT COMMENT** MISC XX SCH (07:22)
[2021-12-07] MEDS: COMBIVENT RESPIMAT 100-20MCG INHALER 4GM INH SCH ×3 (07:23→20:14)
[2021-12-07] MEDS ORDERED: DOCUSATE SODIUM 100MG CAPSULE PO PRN (08:30)
[2021-12-07] MEDS: FLUoxetine 10 MG CAP PO SCH (09:17)
[2021-12-07 09:32] LABS: BASO # 0.1 10^3/uL (0.0-0.2); BASO % 0.8 % (0.0-1.0); EOS # 0.1 10^3/uL (0.0-0.5); EOS % 0.5 % (0.0-3.0); HEMOGLOBIN 9.5 g/dl (12.0-15.5); LYMPH # 1.4 10^3/uL (1.5-5.0); LYMPH % 12.2 % (24.0-44.0); MEAN CORPUSCULAR HEMOGLOBIN 22.8 pg (27.0-33.0); MEAN CORPUSCULAR HGB CONC 29.7 g/dl (32.0-36.5); MEAN CORPUSCULAR VOLUME 76.9 fl (80.0-96.0); MONO # 1.1 10^3/uL (0.0-0.8); MONO % 9.2 % (2.0-8.0); NEUTROPHILS # 8.9 10^3/uL (1.5-8.5); NEUTROPHILS % 76.5 % (36.0-66.0); PLATELET COUNT, AUTOMATED 473 10^3/uL (150-450); RED BLOOD COUNT 4.16 10^6/uL (4.00-5.40); WHITE BLOOD COUNT 11.7 10^3/uL (4.0-10.0)
[2021-12-07 09:50] LABS: BLOOD UREA NITROGEN 19 MG/DL (7-18); CALCIUM LEVEL 9.6 MG/DL (8.8-10.2); CARBON DIOXIDE LEVEL 26 MEQ/L (21-32); CHLORIDE LEVEL 100 MEQ/L (98-107); GLOMERULAR FILTRATION RATE > 60.0 (>39); GLUCOSE, FASTING 158 MG/DL (70-100); POTASSIUM SERUM 4.4 MEQ/L (3.5-5.1); SODIUM LEVEL 135 MEQ/L (136-145)
[2021-12-07 14:00] VITALS: BP 112/69
[2021-12-07 20:00] VITALS: BP 118/75
[2021-12-07] MEDS: ENOXAPARIN 80MG/0.8ML SYRINGE (J1650 PER 10MG) SC SCH (20:38)
[2021-12-07] MEDS: LIDOCAINE 5% (LIDODERM) PATCH TD SCH (20:39)
[2021-12-07] MEDS ORDERED: SENNA 8.6 MG TAB (SENOKOT) PO PRN (21:00)
[2021-12-08 06:00] VITALS: BP 119/75
[2021-12-08] MEDS: COMBIVENT RESPIMAT 100-20MCG INHALER 4GM INH SCH ×3 (07:11→20:00)
[2021-12-08] MEDS: **NOTE PATIENT COMMENT** MISC XX SCH (08:06)
[2021-12-08] MEDS: ATORVASTATIN 20 MG TAB PO SCH (08:40)
[2021-12-08] MEDS: REMEDY PHYTOPLEX Z-GUARD PASTE 113GM TUBE (FROM STOREROOM PRODUCT) TOP SCH ×3 (08:40→20:29)
[2021-12-08] MEDS: levETIRAcetam 250MG TABLET (KEPPRA) PO SCH ×2 (08:40→20:27)
[2021-12-08] MEDS: FLUoxetine 10 MG CAP PO SCH (08:40)
[2021-12-08] MEDS: POTASSIUM CHLORIDE 10MEQ SR TABLET PO SCH ×2 (08:40→20:27)
[2021-12-08] MEDS: PANTOPRAZOLE 40MG TAB (PROTONIX) PO SCH (08:40)
[2021-12-08 14:00] VITALS: BP 117/72
[2021-12-08 20:00] VITALS: BP 124/82
[2021-12-08] MEDS: ENOXAPARIN 80MG/0.8ML SYRINGE (J1650 PER 10MG) SC SCH (20:28)
[2021-12-08] MEDS: LIDOCAINE 5% (LIDODERM) PATCH TD SCH (20:28)
[2021-12-09 06:00] VITALS: BP 131/79
[2021-12-09] MEDS: COMBIVENT RESPIMAT 100-20MCG INHALER 4GM INH SCH ×3 (08:00→20:00)
[2021-12-09] MEDS: ATORVASTATIN 20 MG TAB PO SCH (08:26)
[2021-12-09] MEDS: FLUoxetine 10 MG CAP PO SCH (08:27)
[2021-12-09] MEDS: POTASSIUM CHLORIDE 10MEQ SR TABLET PO SCH ×2 (08:27→20:27)
[2021-12-09] MEDS: REMEDY PHYTOPLEX Z-GUARD PASTE 113GM TUBE (FROM STOREROOM PRODUCT) TOP SCH ×3 (08:27→20:28)
[2021-12-09] MEDS: levETIRAcetam 250MG TABLET (KEPPRA) PO SCH ×2 (08:27→20:27)
[2021-12-09] MEDS: PANTOPRAZOLE 40MG TAB (PROTONIX) PO SCH (08:27)
[2021-12-09] MEDS: **NOTE PATIENT COMMENT** MISC XX SCH (08:28)
[2021-12-09] MEDS: FERROUS SULFATE 325MG TAB PO SCH ×2 (11:17→20:27)
[2021-12-09 14:00] VITALS: BP 136/86
[2021-12-09 19:25] VITALS: BP 116/90
[2021-12-09] MEDS: LIDOCAINE 5% (LIDODERM) PATCH TD SCH (20:21)
[2021-12-09] MEDS: ENOXAPARIN 80MG/0.8ML SYRINGE (J1650 PER 10MG) SC SCH (20:27)
[2021-12-10 05:34] VITALS: BP 124/84
[2021-12-10] MEDS: COMBIVENT RESPIMAT 100-20MCG INHALER 4GM INH SCH ×3 (08:00→20:00)
[2021-12-10 08:06] LABS: BASO # 0.1 10^3/uL (0.0-0.2); BASO % 0.9 % (0.0-1.0); EOS # 0.1 10^3/uL (0.0-0.5); EOS % 0.9 % (0.0-3.0); HEMATOCRIT 33.7 % (36.0-47.0); HEMOGLOBIN 10.1 g/dl (12.0-15.5); LYMPH # 1.5 10^3/uL (1.5-5.0); MEAN CORPUSCULAR HEMOGLOBIN 22.7 pg (27.0-33.0); MEAN CORPUSCULAR VOLUME 75.9 fl (80.0-96.0); MONO # 1.2 10^3/uL (0.0-0.8); MONO % 9.9 % (2.0-8.0); NEUTROPHILS # 8.9 10^3/uL (1.5-8.5); NEUTROPHILS % 74.8 % (36.0-66.0); PLATELET COUNT, AUTOMATED 507 10^3/uL (150-450); RED BLOOD COUNT 4.44 10^6/uL (4.00-5.40); WHITE BLOOD COUNT 11.9 10^3/uL (4.0-10.0)
[2021-12-10 08:25] LABS: BLOOD UREA NITROGEN 16 MG/DL (7-18); CALCIUM LEVEL 9.8 MG/DL (8.8-10.2); CARBON DIOXIDE LEVEL 26 MEQ/L (21-32); CHLORIDE LEVEL 101 MEQ/L (98-107); CREATININE FOR GFR 0.54 MG/DL (0.55-1.30); GLOMERULAR FILTRATION RATE > 60.0 (>39); GLUCOSE, FASTING 115 MG/DL (70-100); SODIUM LEVEL 134 MEQ/L (136-145)
[2021-12-10] MEDS: POTASSIUM CHLORIDE 10MEQ SR TABLET PO SCH ×2 (08:56→21:48)
[2021-12-10] MEDS: FLUoxetine 10 MG CAP PO SCH (08:56)
[2021-12-10] MEDS: FERROUS SULFATE 325MG TAB PO SCH ×2 (08:56→21:48)
[2021-12-10] MEDS: REMEDY PHYTOPLEX Z-GUARD PASTE 113GM TUBE (FROM STOREROOM PRODUCT) TOP SCH ×3 (08:57→21:48)
[2021-12-10] MEDS: PANTOPRAZOLE 40MG TAB (PROTONIX) PO SCH (08:57)
[2021-12-10] MEDS: levETIRAcetam 250MG TABLET (KEPPRA) PO SCH ×2 (08:57→21:48)
[2021-12-10] MEDS: **NOTE PATIENT COMMENT** MISC XX SCH (08:57)
[2021-12-10] MEDS: ATORVASTATIN 20 MG TAB PO SCH (08:57)
[2021-12-10 14:00] VITALS: BP 103/70
[2021-12-10 20:00] VITALS: BP 119/76
[2021-12-10] MEDS: LIDOCAINE 5% (LIDODERM) PATCH TD SCH (21:00)
[2021-12-10] MEDS: METOPROLOL TART 12.5 MG PER 1/2 TAB PO SCH (21:56)
[2021-12-11 05:55] VITALS: BP 119/69
[2021-12-11] MEDS: METOPROLOL TART 12.5 MG PER 1/2 TAB PO SCH ×2 (06:11→14:00)
[2021-12-11] MEDS: COMBIVENT RESPIMAT 100-20MCG INHALER 4GM INH SCH ×3 (07:58→20:00)
[2021-12-11] MEDS: FERROUS SULFATE 325MG TAB PO SCH ×2 (08:41→22:23)
[2021-12-11] MEDS: PANTOPRAZOLE 40MG TAB (PROTONIX) PO SCH (08:42)
[2021-12-11] MEDS: **NOTE PATIENT COMMENT** MISC XX SCH (08:42)
[2021-12-11] MEDS: REMEDY PHYTOPLEX Z-GUARD PASTE 113GM TUBE (FROM STOREROOM PRODUCT) TOP SCH ×3 (08:42→22:24)
[2021-12-11] MEDS: levETIRAcetam 250MG TABLET (KEPPRA) PO SCH ×2 (08:42→22:23)
[2021-12-11] MEDS: POTASSIUM CHLORIDE 10MEQ SR TABLET PO SCH ×2 (08:42→22:22)
[2021-12-11] MEDS: ATORVASTATIN 20 MG TAB PO SCH (08:42)
[2021-12-11 14:00] VITALS: BP 118/67
[2021-12-11] MEDS: PROPRANOLOL 10 MG TAB PO SCH ×2 (16:00→22:23)
[2021-12-11 20:00] VITALS: BP 113/71
[2021-12-11] MEDS: LIDOCAINE 5% (LIDODERM) PATCH TD SCH (22:23)
[2021-12-12 06:00] VITALS: BP 105/73
[2021-12-12] MEDS: COMBIVENT RESPIMAT 100-20MCG INHALER 4GM INH SCH ×3 (08:00→20:00)
[2021-12-12 08:22] LABS: BASO # 0.1 10^3/uL (0.0-0.2); BASO % 0.9 % (0.0-1.0); EOS # 0.6 10^3/uL (0.0-0.5); EOS % 3.9 % (0.0-3.0); LYMPH # 2.4 10^3/uL (1.5-5.0); LYMPH % 16.4 % (24.0-44.0); MEAN CORPUSCULAR HEMOGLOBIN 22.5 pg (27.0-33.0); MEAN CORPUSCULAR HGB CONC 29.4 g/dl (32.0-36.5); MEAN CORPUSCULAR VOLUME 76.6 fl (80.0-96.0); MONO # 1.5 10^3/uL (0.0-0.8); MONO % 10.4 % (2.0-8.0); NEUTROPHILS # 9.9 10^3/uL (1.5-8.5); NEUTROPHILS % 68.1 % (36.0-66.0); PLATELET COUNT, AUTOMATED 374 10^3/uL (150-450); RED BLOOD COUNT 4.44 10^6/uL (4.00-5.40); WHITE BLOOD COUNT 14.6 10^3/uL (4.0-10.0)
[2021-12-12] MEDS: levETIRAcetam 250MG TABLET (KEPPRA) PO SCH ×2 (08:35→21:11)
[2021-12-12] MEDS: FERROUS SULFATE 325MG TAB PO SCH ×2 (08:35→21:11)
[2021-12-12] MEDS: PROPRANOLOL 10 MG TAB PO SCH ×3 (08:36→21:00)
[2021-12-12] MEDS: POTASSIUM CHLORIDE 10MEQ SR TABLET PO SCH ×2 (08:36→21:12)
[2021-12-12] MEDS: PANTOPRAZOLE 40MG TAB (PROTONIX) PO SCH (08:36)
[2021-12-12] MEDS: ATORVASTATIN 20 MG TAB PO SCH (08:36)
[2021-12-12] MEDS: REMEDY PHYTOPLEX Z-GUARD PASTE 113GM TUBE (FROM STOREROOM PRODUCT) TOP SCH ×3 (08:37→21:14)
[2021-12-12] MEDS: **NOTE PATIENT COMMENT** MISC XX SCH (08:37)
[2021-12-12 08:51] LABS: BLOOD UREA NITROGEN 23 MG/DL (7-18); CALCIUM LEVEL 9.6 MG/DL (8.8-10.2); CARBON DIOXIDE LEVEL 27 MEQ/L (21-32); CHLORIDE LEVEL 102 MEQ/L (98-107); CREATININE FOR GFR 0.63 MG/DL (0.55-1.30); GLOMERULAR FILTRATION RATE > 60.0 (>39); GLUCOSE, FASTING 127 MG/DL (70-100); POTASSIUM SERUM 4.4 MEQ/L (3.5-5.1); SODIUM LEVEL 136 MEQ/L (136-145)
[2021-12-12 14:00] VITALS: BP 112/73
[2021-12-12 20:00] VITALS: BP 105/66
[2021-12-12] MEDS: LIDOCAINE 5% (LIDODERM) PATCH TD SCH (21:00)
[2021-12-13 06:00] VITALS: BP 115/78
[2021-12-13] MEDS: COMBIVENT RESPIMAT 100-20MCG INHALER 4GM INH SCH ×3 (08:00→20:00)
[2021-12-13] MEDS: ATORVASTATIN 20 MG TAB PO SCH (08:38)
[2021-12-13] MEDS: levETIRAcetam 250MG TABLET (KEPPRA) PO SCH ×2 (08:38→20:55)
[2021-12-13] MEDS: PROPRANOLOL 10 MG TAB PO SCH ×3 (08:38→20:55)
[2021-12-13] MEDS: PANTOPRAZOLE 40MG TAB (PROTONIX) PO SCH (08:38)
[2021-12-13] MEDS: **NOTE PATIENT COMMENT** MISC XX SCH (08:39)
[2021-12-13] MEDS: POTASSIUM CHLORIDE 10MEQ SR TABLET PO SCH ×2 (08:39→20:55)
[2021-12-13] MEDS: FERROUS SULFATE 325MG TAB PO SCH ×2 (08:39→20:56)
[2021-12-13] MEDS: REMEDY PHYTOPLEX Z-GUARD PASTE 113GM TUBE (FROM STOREROOM PRODUCT) TOP SCH ×3 (08:39→20:56)
[2021-12-13 14:00] VITALS: BP 97/66
[2021-12-13 20:00] VITALS: BP 112/78
[2021-12-13] MEDS: LIDOCAINE 5% (LIDODERM) PATCH TD SCH (20:56)
[2021-12-14 06:00] VITALS: BP 110/62
[2021-12-14] MEDS: COMBIVENT RESPIMAT 100-20MCG INHALER 4GM INH SCH ×3 (07:26→19:55)
[2021-12-14] MEDS: **NOTE PATIENT COMMENT** MISC XX SCH (09:00)
[2021-12-14] MEDS: FERROUS SULFATE 325MG TAB PO SCH ×2 (10:22→20:42)
[2021-12-14] MEDS: ATORVASTATIN 20 MG TAB PO SCH (10:23)
[2021-12-14] MEDS: PROPRANOLOL 10 MG TAB PO SCH ×3 (10:23→20:42)
[2021-12-14] MEDS: PANTOPRAZOLE 40MG TAB (PROTONIX) PO SCH (10:23)
[2021-12-14] MEDS: levETIRAcetam 250MG TABLET (KEPPRA) PO SCH ×2 (10:23→20:41)
[2021-12-14] MEDS: POTASSIUM CHLORIDE 10MEQ SR TABLET PO SCH ×2 (10:24→20:42)
[2021-12-14] MEDS: REMEDY PHYTOPLEX Z-GUARD PASTE 113GM TUBE (FROM STOREROOM PRODUCT) TOP SCH ×3 (10:25→20:48)
[2021-12-14] MEDS: ENOXAPARIN 80MG/0.8ML SYRINGE (J1650 PER 10MG) SC SCH (12:51)
[2021-12-14 14:00] VITALS: BP 107/72
[2021-12-14] MEDS ORDERED: PROHANCE 279.3MG/ML 5ML VIAL As Ordered ONE (17:49)
[2021-12-14] MEDS: LIDOCAINE 5% (LIDODERM) PATCH TD SCH (20:47)
[2021-12-14 21:15] VITALS: BP 118/75
[2021-12-15 06:07] VITALS: BP 118/72
[2021-12-15] MEDS: COMBIVENT RESPIMAT 100-20MCG INHALER 4GM INH SCH ×3 (07:16→19:25)
[2021-12-15] MEDS: ATORVASTATIN 20 MG TAB PO SCH (09:14)
[2021-12-15] MEDS: PROPRANOLOL 10 MG TAB PO SCH ×3 (09:14→20:38)
[2021-12-15] MEDS: PANTOPRAZOLE 40MG TAB (PROTONIX) PO SCH (09:14)
[2021-12-15] MEDS: FERROUS SULFATE 325MG TAB PO SCH ×2 (09:14→20:36)
[2021-12-15] MEDS: POTASSIUM CHLORIDE 10MEQ SR TABLET PO SCH ×2 (09:15→20:37)
[2021-12-15] MEDS: **NOTE PATIENT COMMENT** MISC XX SCH (09:15)
[2021-12-15] MEDS: levETIRAcetam 250MG TABLET (KEPPRA) PO SCH ×2 (09:15→20:38)
[2021-12-15] MEDS: REMEDY PHYTOPLEX Z-GUARD PASTE 113GM TUBE (FROM STOREROOM PRODUCT) TOP SCH ×3 (09:16→20:39)
[2021-12-15] MEDS: ENOXAPARIN 80MG/0.8ML SYRINGE (J1650 PER 10MG) SC SCH (12:11)
[2021-12-15 13:48] VITALS: BP 103/65
[2021-12-15 20:00] VITALS: BP 113/71
[2021-12-15] MEDS: LIDOCAINE 5% (LIDODERM) PATCH TD SCH (20:38)
[2021-12-16 06:00] VITALS: BP 105/71
[2021-12-16] MEDS: COMBIVENT RESPIMAT 100-20MCG INHALER 4GM INH SCH ×3 (07:18→21:27)
[2021-12-16] MEDS: ATORVASTATIN 20 MG TAB PO SCH (08:03)
[2021-12-16] MEDS: PANTOPRAZOLE 40MG TAB (PROTONIX) PO SCH (08:03)
[2021-12-16] MEDS: FERROUS SULFATE 325MG TAB PO SCH ×2 (08:03→21:22)
[2021-12-16] MEDS: levETIRAcetam 250MG TABLET (KEPPRA) PO SCH ×2 (08:03→21:22)
[2021-12-16] MEDS: POTASSIUM CHLORIDE 10MEQ SR TABLET PO SCH ×2 (08:03→21:22)
[2021-12-16] MEDS: PROPRANOLOL 10 MG TAB PO SCH ×3 (08:04→21:00)
[2021-12-16] MEDS: REMEDY PHYTOPLEX Z-GUARD PASTE 113GM TUBE (FROM STOREROOM PRODUCT) TOP SCH ×3 (08:08→21:23)
[2021-12-16] MEDS: **NOTE PATIENT COMMENT** MISC XX SCH (08:09)
[2021-12-16] MEDS: ENOXAPARIN 80MG/0.8ML SYRINGE (J1650 PER 10MG) SC SCH (12:21)
[2021-12-16 15:00] VITALS: BP 102/71
[2021-12-16 20:03] VITALS: BP 104/71
[2021-12-16] MEDS: LIDOCAINE 5% (LIDODERM) PATCH TD SCH ×2 (21:00→21:22)
[2021-12-17 05:12] VITALS: BP 101/69
[2021-12-17 06:57] LABS: BASO # 0.1 10^3/uL (0.0-0.2); EOS # 0.2 10^3/uL (0.0-0.5); EOS % 1.3 % (0.0-3.0); HEMATOCRIT 33.2 % (36.0-47.0); HEMOGLOBIN 9.9 g/dl (12.0-15.5); LYMPH % 16.3 % (24.0-44.0); MEAN CORPUSCULAR HEMOGLOBIN 22.9 pg (27.0-33.0); MEAN CORPUSCULAR HGB CONC 29.8 g/dl (32.0-36.5); MEAN CORPUSCULAR VOLUME 76.7 fl (80.0-96.0); MONO % 8.2 % (2.0-8.0); NEUTROPHILS % 72.6 % (36.0-66.0); PLATELET COUNT, AUTOMATED 436 10^3/uL (150-450); RED BLOOD COUNT 4.33 10^6/uL (4.00-5.40); WHITE BLOOD COUNT 12.4 10^3/uL (4.0-10.0)
[2021-12-17 07:26] LABS: BLOOD UREA NITROGEN 29 MG/DL (7-18); CALCIUM LEVEL 9.6 MG/DL (8.8-10.2); CARBON DIOXIDE LEVEL 21 MEQ/L (21-32); CHLORIDE LEVEL 108 MEQ/L (98-107); CREATININE FOR GFR 0.58 MG/DL (0.55-1.30); GLOMERULAR FILTRATION RATE > 60.0 (>39); GLUCOSE, FASTING 92 MG/DL (70-100); POTASSIUM SERUM 4.1 MEQ/L (3.5-5.1); SODIUM LEVEL 140 MEQ/L (136-145)
[2021-12-17] MEDS: COMBIVENT RESPIMAT 100-20MCG INHALER 4GM INH SCH ×3 (07:42→20:22)
[2021-12-17] MEDS: FERROUS SULFATE 325MG TAB PO SCH ×2 (08:14→20:21)
[2021-12-17] MEDS: ATORVASTATIN 20 MG TAB PO SCH (08:15)
[2021-12-17] MEDS: POTASSIUM CHLORIDE 10MEQ SR TABLET PO SCH ×2 (08:15→20:21)
[2021-12-17] MEDS: levETIRAcetam 250MG TABLET (KEPPRA) PO SCH ×2 (08:15→20:21)
[2021-12-17] MEDS: PANTOPRAZOLE 40MG TAB (PROTONIX) PO SCH (08:15)
[2021-12-17] MEDS: PROPRANOLOL 10 MG TAB PO SCH ×3 (08:15→20:21)
[2021-12-17] MEDS: **NOTE PATIENT COMMENT** MISC XX SCH (08:16)
[2021-12-17] MEDS: REMEDY PHYTOPLEX Z-GUARD PASTE 113GM TUBE (FROM STOREROOM PRODUCT) TOP SCH ×3 (08:16→20:22)
[2021-12-17] MEDS: ENOXAPARIN 80MG/0.8ML SYRINGE (J1650 PER 10MG) SC SCH (12:07)
[2021-12-17] MEDS: ACETAMINOPHEN TAB 650MG DOSE (2X325MG) PO PRN (12:19)
[2021-12-17 14:00] VITALS: BP 118/64
[2021-12-17 19:51] VITALS: BP 109/70
[2021-12-17] MEDS: LIDOCAINE 5% (LIDODERM) PATCH TD SCH (20:22)
[2021-12-18 05:40] VITALS: BP 112/70
[2021-12-18] MEDS: COMBIVENT RESPIMAT 100-20MCG INHALER 4GM INH SCH ×3 (08:00→20:00)
[2021-12-18] MEDS: **NOTE PATIENT COMMENT** MISC XX SCH (09:00)
[2021-12-18] MEDS: PANTOPRAZOLE 40MG TAB (PROTONIX) PO SCH (10:40)
[2021-12-18] MEDS: FERROUS SULFATE 325MG TAB PO SCH ×2 (10:40→21:40)
[2021-12-18] MEDS: POTASSIUM CHLORIDE 10MEQ SR TABLET PO SCH ×2 (10:40→21:40)
[2021-12-18] MEDS: levETIRAcetam 250MG TABLET (KEPPRA) PO SCH ×2 (10:41→21:40)
[2021-12-18] MEDS: PROPRANOLOL 10 MG TAB PO SCH ×3 (10:41→21:00)
[2021-12-18] MEDS: ATORVASTATIN 20 MG TAB PO SCH (10:42)
[2021-12-18] MEDS: ACETAMINOPHEN TAB 650MG DOSE (2X325MG) PO PRN ×2 (10:42→22:19)
[2021-12-18] MEDS: REMEDY PHYTOPLEX Z-GUARD PASTE 113GM TUBE (FROM STOREROOM PRODUCT) TOP SCH ×3 (10:43→21:40)
[2021-12-18] MEDS: ENOXAPARIN 80MG/0.8ML SYRINGE (J1650 PER 10MG) SC SCH (11:56)
[2021-12-18 14:00] VITALS: BP 102/68
[2021-12-18 20:00] VITALS: BP 107/71
[2021-12-18] MEDS: LIDOCAINE 5% (LIDODERM) PATCH TD SCH (21:00)
[2021-12-19 06:00] VITALS: BP 111/71
[2021-12-19] MEDS: COMBIVENT RESPIMAT 100-20MCG INHALER 4GM INH SCH ×2 (07:31→13:19)
[2021-12-19] MEDS: PANTOPRAZOLE 40MG TAB (PROTONIX) PO SCH (08:21)
[2021-12-19] MEDS: POTASSIUM CHLORIDE 10MEQ SR TABLET PO SCH (08:21)
[2021-12-19 08:22] VITALS: BP 108/61
[2021-12-19] MEDS: PROPRANOLOL 10 MG TAB PO SCH (08:22)
[2021-12-19] MEDS: ATORVASTATIN 20 MG TAB PO SCH (08:22)
[2021-12-19] MEDS: FERROUS SULFATE 325MG TAB PO SCH (08:22)
[2021-12-19] MEDS: **NOTE PATIENT COMMENT** MISC XX SCH (08:22)
[2021-12-19] MEDS: levETIRAcetam 250MG TABLET (KEPPRA) PO SCH (08:22)
[2021-12-19] MEDS: REMEDY PHYTOPLEX Z-GUARD PASTE 113GM TUBE (FROM STOREROOM PRODUCT) TOP SCH (08:23)
[2021-12-19] MEDS ORDERED: KEPP250T5 PO (09:57)
[2021-12-19] MEDS ORDERED: LOVE0.6I2 SC (09:57)
[2021-12-19] MEDS ORDERED: POTA-136 PO (09:57)
[2021-12-19] MEDS ORDERED: ATOR40TA75 PO (09:57)
[2021-12-19] MEDS ORDERED: COMBAER6 INH (09:57)
[2021-12-19] MEDS ORDERED: PROP10TA56 PO (09:57)
[2021-12-19] MEDS: ENOXAPARIN 80MG/0.8ML SYRINGE (J1650 PER 10MG) SC SCH (12:18)
[2021-12-19 14:00] VITALS: BP 125/75
== END 2021-12-19 16:20 | disposition home health service (06) | DRG 56 ==
LOC: M PM&R 11:40
PROVIDERS: ADMIT Physical Medicine & Rehabilitation; ATTEND Physical Medicine & Rehabilitation
DX: I69.354 Hemiplegia and hemiparesis following cerebral infarction affecting left non-dominant side (principal); I61.9 Nontraumatic intracerebral hemorrhage, unspecified; C79.31 Secondary malignant neoplasm of brain; C34.31 Malignant neoplasm of lower lobe, right bronchus or lung; I50.32 Chronic diastolic (congestive) heart failure; G40.209 Localization-related (focal) (partial) symptomatic epilepsy and epileptic syndromes with complex partial seizures, not intractable, without status epilepticus; M19.90 Unspecified osteoarthritis, unspecified site; F17.200 Nicotine dependence, unspecified, uncomplicated; D50.9 Iron deficiency anemia, unspecified; R32 Unspecified urinary incontinence; Z86.711 Personal history of pulmonary embolism; Z95.828 Presence of other vascular implants and grafts; Z79.01 Long term (current) use of anticoagulants; Z79.899 Other long term (current) drug therapy; Z74.09 Other reduced mobility; Z74.1 Need for assistance with personal care; J43.9 Emphysema, unspecified; I69.321 Dysphasia following cerebral infarction; R13.10 Dysphagia, unspecified

== ENCOUNTER 2021-12-17 07:14 | Outpatient (RCR) | payer MEDICARE, OTHER ==
[2021-12-19] MEDS ORDERED: LOVE0.6I2 SC (09:57)
[2021-12-19] MEDS ORDERED: ATOR40TA75 PO (09:57)
[2021-12-19] MEDS ORDERED: KEPP250T5 PO (09:57)
[2021-12-19] MEDS ORDERED: COMBAER6 INH (09:57)
[2021-12-19] MEDS ORDERED: PROP10TA56 PO (09:57)
[2021-12-19] MEDS ORDERED: POTA-136 PO (09:57)
== END 2021-12-24 ==
LOC: M ONCR 07:14
PROVIDERS: ATTEND General Practice
DX: C34.2 Malignant neoplasm of middle lobe, bronchus or lung (principal); C79.31 Secondary malignant neoplasm of brain